=== PATIENT | female | born 1945 | race Caucasian/White ===

== ENCOUNTER 2020-02-29 21:18 | Emergency (ER) | payer MEDICARE, OTHER ==
[~2020-02-29] VITALS: Ht 162.6 cm; Wt 68.0 kg
[2020-02-29] MEDS ORDERED: predniSONE 20 MG TABLET ONE (22:25)
[2020-02-29] MEDS ORDERED: predniSONE 20 MG TABLET PO ONE (22:30)
[2020-02-29] MEDS ORDERED: ALBUTEROL FS 2.5 MG/3 ML VIAL.NEB ONE (22:30)
[2020-02-29] MEDS ORDERED: IPRATROPIUM NEB FS 0.5 MG/2.5 ML AMPUL.NEB ONE (22:30)
[2020-02-29] MEDS ORDERED: ALBUTEROL FS 2.5 MG/3 ML VIAL.NEB NEB ONE (22:30)
[2020-02-29] MEDS ORDERED: IPRATROPIUM NEB FS 0.5 MG/2.5 ML AMPUL.NEB NEB ONE (22:30)
--- NOTE | 2020-02-29 22:30 | NUR ---
JOSE R Tineo FROM [facility] FOR C/O SOB. 88 O2 SAT ON SCENE. PT AAOX3, DENIES CP, DIZZINESS, N/V, WEAKNESS AT THIS TIME. PLACED ON O2 2L SAT 97%, PT SEEN & EVAL'D BY DR. TORRES. MEDICATED ORDERED, PT LESVIA WELL. PLACED ON HAND I THERMAL CUTTER. SR. PT GETTING BREATHING TX, GIVEN BY RT. WILL CONT TO MONITOR.
[2020-02-29 22:42] LABS: BASOPHILS # (AUTO) 0.1 /CMM (0.0-0.2); BASOPHILS % (AUTO) 0.6 % (0.0-2.0); EOSINOPHILS % (AUTO) 4.8 % (0.0-6.0); HEMATOCRIT 40 % (33-45); HEMOGLOBIN 12.9 g/dL (11.5-14.8); LYMPHOCYTES # (AUTO) 3.1 /CMM (0.8-4.8); LYMPHOCYTES % (AUTO) 31.9 % (20.0-44.0); MEAN CORPUSCULAR HGB CONC 33 g/dl (31.0-36.0); MEAN CORPUSCULAR VOLUME 86 fL (82-100); MONOCYTES # (AUTO) 0.7 /CMM (0.1-1.30); MONOCYTES % (AUTO) 7.8 % (2.0-12.0); NEUTROPHILS # (AUTO) 5.3 /CMM (1.8-8.9); NEUTROPHILS % (AUTO) 54.9 % (43.0-81.0); PLATELET COUNT (AUTO) 220 /CMM (150-450); RED BLOOD CELL COUNT(AUTO) 4.57 MIL/uL (4.0-5.2); WHITE BLOOD COUNT (AUTO) 9.6 K/uL (4.3-11.0)
[2020-02-29 22:51] LABS: CALCIUM, SERUM 10.5 mg/dL (8.5-10.1); CARBON DIOXIDE 29 mmol/L (21-32); CHLORIDE 104 mmol/L (98-107); CREATININE 0.8 mg/dL (0.6-1.3); GLUCOSE 102 mg/dL (74-106); POTASSIUM 3.8 mmol/L (3.5-5.1); SODIUM SERUM 139 mmol/L (136-145); UREA NITROGEN, BLOOD 21 mg/dL (7-18)
--- NOTE | 2020-02-29 23:38 | NUR ---
BREATHING TX IN PROGRESS
--- NOTE | 2020-02-29 23:59 | NUR ---
[facility] CALLED FOR TRANSPORT. NO AVAILABLE ETA.
--- NOTE | 2020-03-01 00:11 | NUR ---
[facility] CALLED FOR S TRANSPORT. #[id number]. PENDING ETA
--- NOTE | 2020-03-01 00:51 | NUR ---
WILL SURVIVAL SPECIALIST IN 1 HOUR BY [facility].
--- NOTE | 2020-03-01 01:17 | NUR ---
REPORT GIVEN TO RICKY AT [facility]
--- NOTE | 2020-03-01 01:21 | NUR ---
REPORT GIVEN TO RICKY FOR CONTINUATION OF CARE.
--- NOTE | 2020-03-01 01:26 | NUR ---
[facility] AT BEDSIDE FOR TRANSPORT TO
--- NOTE | 2020-03-01 02:02 | NUR ---
Patient discharged to home in stable condition. Written and verbal after care instructions given. Patient verbalizes understanding of instruction.
[2020-03-01 02:03] VITALS: BP 106/85
== END 2020-03-01 02:04 ==
LOC: ER 21:21
DX: J44.1 Chronic obstructive pulmonary disease with (acute) exacerbation (principal); F17.210 Nicotine dependence, cigarettes, uncomplicated; I10 Essential (primary) hypertension; F31.9 Bipolar disorder, unspecified
CPT/HCPCS: 36415; 71045; 80048; 84484; 85025; 93005; 94644; 99285; 99406; J7512

== ENCOUNTER 2020-10-09 11:28 | Inpatient (IN) | payer MEDICARE, OTHER ==
[~2020-10-09] VITALS: Ht 160 cm; Wt 68.0 kg
[2020-10-09] MEDS ORDERED: SENN-18 PO (11:37)
[2020-10-09] MEDS ORDERED: CYAN-51 PO (11:37)
[2020-10-09] MEDS ORDERED: LITH300C4 PO (11:37)
[2020-10-09] MEDS ORDERED: MELA3TAB41 PO (11:37)
[2020-10-09] MEDS ORDERED: LATA2.5D15 EACHEYE (11:37)
[2020-10-09] MEDS ORDERED: DIPH-530 PO (11:37)
[2020-10-09] MEDS ORDERED: BISA10SU11 RC (11:37)
[2020-10-09] MEDS ORDERED: MAGN400O6 PO (11:37)
[2020-10-09] MEDS ORDERED: DOCU-141 PO (11:37)
[2020-10-09] MEDS ORDERED: ASPI-1420 PO (11:37)
[2020-10-09] MEDS ORDERED: PRAV40TA PO (11:37)
[2020-10-09] MEDS ORDERED: POLY17PO4 PO (11:37)
[2020-10-09] MEDS ORDERED: RISP1TAB7 PO (11:37)
[2020-10-09] MEDS ORDERED: MAGNESIUM HYDROXIDE 30 ML UDC PO PRN ×2 (12:30→15:00)
[2020-10-09] MEDS ORDERED: ACETAMINOPHEN 325 MG TABLET PO PRN (12:30)
[2020-10-09] MEDS ORDERED: LORAZEPAM 0.5 MG TABLET PO PRN (12:30)
[2020-10-09] MEDS ORDERED: MAG HYDROX/AL HYDROX/SIMETH 30 ML UDC PO PRN (12:30)
[2020-10-09 12:40] VITALS: BP 137/72
--- NOTE | 2020-10-09 13:00 | NUR ---
transition rn notes received patient direct admit from [facility] direct admit on dx of psychosis nos. , bipolar d/o, depression. patient a/o x3, , cooperative, no acute distress, no respiratory distress, v/s taken bp 127/72, t-98.1, r-19, p-64, o2-95 room air. Patient face to face assessment done, skin intact, refused si/hi/avh at this time. patient ambulatory self care, anxious, refractable. Family called and aware of. Seen patient psychiatrist Dr Sheffield. face picture taken, MRSA of nares swab as well taken. Patient sign paperwork, belonging checked. educated surrounding. will monitoring.
[2020-10-09] MEDS ORDERED: POLYETHYLENE GLYCOL 3350 17 GM POWD.PACK PO PRN (15:00)
[2020-10-09] MEDS ORDERED: SENNOSIDES 8.6 MG TABLET PO PRN (15:00)
[2020-10-09] MEDS ORDERED: diphenhydrAMINE HCL ELIX 25 MG/10 ML UDC PO PRN (15:00)
[2020-10-09] MEDS ORDERED: HOME MED MISCELLANEOUS XX SCH (15:00)
[2020-10-09] MEDS ORDERED: BISACODYL SUPP (10 MG) 10 MG/SUPP.RECT SUPP.RECT RC PRN (15:00)
[2020-10-09 16:00] VITALS: BP 146/85
[2020-10-09] MEDS ORDERED: BLOOD SUGAR DIAGNOSTIC 1 EACH STRIP IN ONE (16:30)
[2020-10-09] MEDS: ATORVASTATIN 10 MG TABLET PO SCH (17:22)
[2020-10-09] MEDS: risperiDONE 1 MG TABLET PO SCH (17:23)
[2020-10-09] MEDS: DOCUSATE SODIUM 100 MG CAPSULE PO SCH (17:23)
[2020-10-09] MEDS: CYANOCOBALAMIN 500 MCG TABLET PO SCH (17:23)
--- NOTE | 2020-10-09 17:49 | NUR ---
rn notes bs-78 mg/dl, also administered due medication, patient tolerated dinner 100 %. endorsed oncoming nurse follow plan of care.
[2020-10-09 18:03] LABS: THYROID STIMULATING HORMONE 0.497 uIU/mL (0.358-3.74)
[2020-10-09 20:48] VITALS: BP 154/90
--- NOTE | 2020-10-09 21:00 | NUR ---
NURSES NOTES: PATIENT REFUSED HER LITHIUM CARBONATE MEDICATION- WHEN ASKED THE REASON FOR REFUSAL PATIENT STATED THAT IT HAS A SIDE EFFECT ON THE KIDNEYS. NURSE EXPLAINED TO PATIENT THE RISKS AND BENEFITS OF THE SAID MEDICATION- PATIENT STILL REFUSED.
[2020-10-09] MEDS: LATANOPROST EYE DROP 0.005% 2.5 ML BOTTLE EACHEYE SCH (21:23)
[2020-10-09] MEDS ORDERED: LITHIUM CARBONATE (300 MG CAP) 300 MG CAPSULE PO SCH (22:00)
[2020-10-10 08:00] VITALS: BP 127/62
--- NOTE | 2020-10-10 08:13 | NUR ---
RN NOTES PT REFUSED LAB DRAW TODAY ORDERED. RISK AND BENEFITS DISCUSSED WITH PT RE:ORDER. PT CONTINUE TO REFUSED. X3. WILL MONITOR CARE
[2020-10-10] MEDS: CYANOCOBALAMIN 500 MCG TABLET PO SCH (08:31)
[2020-10-10] MEDS: ASPIRIN EC 81 MG TABLET.DR PO SCH (08:31)
[2020-10-10] MEDS: risperiDONE 1 MG TABLET PO SCH ×2 (08:33→16:18)
[2020-10-10] MEDS: DOCUSATE SODIUM 100 MG CAPSULE PO SCH ×2 (08:33→16:18)
--- NOTE | 2020-10-10 08:33 | NUR ---
RN NOTES PT REFUSED COLACE DUE TAT 9 AM - LBM TODAY WITH LOOSE BM X1. LITHIUM AND RISPERIDONE PT STATED "I DON;T TAKE THOSE MEDICATION, IT WILL DAMAGE MY KIDNEY". RISK AND BENEFITS DISCUSSED WITH PATIENT, CONTINUE TO REFUSED X3. WILL CONTINUE TO MONITOR CARE
[2020-10-10] MEDS ORDERED: LITHIUM CARBONATE (300 MG CAP) 300 MG CAPSULE PO SCH (09:00)
[2020-10-10] MEDS ORDERED: LITHIUM CARBONATE 150 MG CAPSULE PO SCH (09:00)
--- NOTE | 2020-10-10 12:07 | NUR ---
RN NOTES PT LAB DRAW ORDERED TODAY (CMP, LIPID, [id number]) CANCELLED DUE TO PT REFUSAL X [address] NURSE [address] DR. ISRAEL MADE AWARE. ALSO, DR. ISRAEL INFORMED ABOUT PATIENT REFUSAL OF MEDICATION : LITHIUM AND RISPERIDONE. PT NO S/SX OF PHYSICAL AGGRESSIVENESS, COMBATIVENESS, AH/VH/SI/HI. NO NEW ORDER OBTAINED
--- NOTE | 2020-10-10 12:58 | NUR ---
RN NOTES PT EKG DONE - SR 61. ORDERING PROVIDER, DR. ISRAEL NOTIFIED. READY TO REVIEW W/ DR. GRANADOS
[2020-10-10] MEDS: DIVALPROEX SODIUM 250 MG TABLET.DR PO SCH ×2 (13:59→21:11)
[2020-10-10 16:00] VITALS: BP_SYST 132; BP_SYST 134; BP_DIAS 73; BP_DIAS 77
[2020-10-10] MEDS: ATORVASTATIN 10 MG TABLET PO SCH (17:07)
[2020-10-10 19:51] VITALS: BP 128/84
[2020-10-10] MEDS: LATANOPROST EYE DROP 0.005% 2.5 ML BOTTLE EACHEYE SCH (21:12)
[2020-10-11] MEDS: ASPIRIN EC 81 MG TABLET.DR PO SCH (08:32)
[2020-10-11] MEDS: DOCUSATE SODIUM 100 MG CAPSULE PO SCH ×3 (08:32→17:00)
[2020-10-11] MEDS: DIVALPROEX SODIUM 250 MG TABLET.DR PO SCH ×2 (08:32→20:52)
[2020-10-11] MEDS: risperiDONE 1 MG TABLET PO SCH ×2 (08:33→17:07)
[2020-10-11] MEDS: CYANOCOBALAMIN 500 MCG TABLET PO SCH (08:33)
--- NOTE | 2020-10-11 10:00 | NUR ---
RN Open Notes: Patient aaox2, denies pain/discomforts. Meal consumed. Compliant with meds, except colace "i'm not constipated." Disheveled appearance. Withdrawn. No aggressive behaviors.
[2020-10-11] MEDS: ATORVASTATIN 10 MG TABLET PO SCH (17:08)
--- NOTE | 2020-10-11 18:42 | NUR ---
Rn Close Note: Patient in day room most of shift, calm/cooperative. All medication accepted. No unwanted behaviors.
[2020-10-11] MEDS: LATANOPROST EYE DROP 0.005% 2.5 ML BOTTLE EACHEYE SCH (21:23)
[2020-10-11] MEDS: ZOLPIDEM TARTRATE 5 MG TABLET PO PRN (22:14)
--- NOTE | 2020-10-11 22:14 | NUR ---
GPS-RN NOTES: INSOMNIA PATIENT C/O INABILITY TO SLEEP. ADMINISTERED AMBIEN 5MG PO ORDERED. WILL CONTINUE TO MONITOR.
[2020-10-12 08:00] VITALS: BP 118/69
[2020-10-12] MEDS: risperiDONE 1 MG TABLET PO SCH ×2 (08:18→17:02)
[2020-10-12] MEDS: DOCUSATE SODIUM 100 MG CAPSULE PO SCH ×2 (08:18→17:00)
[2020-10-12] MEDS: CYANOCOBALAMIN 500 MCG TABLET PO SCH (08:18)
[2020-10-12] MEDS: ASPIRIN EC 81 MG TABLET.DR PO SCH (08:18)
[2020-10-12] MEDS: DIVALPROEX SODIUM 250 MG TABLET.DR PO SCH ×2 (08:20→20:01)
--- NOTE | 2020-10-12 08:30 | NUR ---
Family Contact: SW called the pts daughter, Mariajose ([phone]), who provided the SW with an extensive history on the pt and then went on to explain that the pt was accepted to [facility] but when she walked through the doors she began screaming and shouting and now the family is unsure if she can return. SW stated that she can call the facility and work with them but the daughter stated that she will facilitate with them because "they do not like getting a lot of phone calls."
--- NOTE | 2020-10-12 15:42 | NUR ---
Initial Discharge Plan: Pt currently resides at [facility] located at [address] [place] [address]; ([phone]). Per pts daughter, Nimesh ([phone]), she will call the facility and work with them. SW will work with the pt and the MD regarding appropriate discharge planning. SW will form a safe and proper discharge.
[2020-10-12 16:00] VITALS: BP 134/71
[2020-10-12] MEDS: ATORVASTATIN 10 MG TABLET PO SCH (17:02)
[2020-10-12] MEDS: ZOLPIDEM TARTRATE 5 MG TABLET PO PRN (19:50)
[2020-10-12 20:00] VITALS: BP 116/71
[2020-10-12] MEDS: LATANOPROST EYE DROP 0.005% 2.5 ML BOTTLE EACHEYE SCH (21:57)
[2020-10-13 08:00] VITALS: BP 119/63
[2020-10-13] MEDS: risperiDONE 1 MG TABLET PO SCH ×2 (08:25→16:40)
[2020-10-13] MEDS: DIVALPROEX SODIUM 250 MG TABLET.DR PO SCH ×2 (08:25→20:50)
[2020-10-13] MEDS: ASPIRIN EC 81 MG TABLET.DR PO SCH (08:25)
[2020-10-13] MEDS: CYANOCOBALAMIN 500 MCG TABLET PO SCH (08:25)
[2020-10-13] MEDS: DOCUSATE SODIUM 100 MG CAPSULE PO SCH ×4 (08:25→16:40)
--- NOTE | 2020-10-13 10:51 | NUR ---
Family Contact: SW called the pts daughter, Mariajose ([phone]), and left a voicemail stating that the SW would like to discuss the pts discharge plan.
--- NOTE | 2020-10-13 11:17 | NUR ---
Family Contact: SW called the pts daughter, Mariajose ([phone]), and left a voicemail stating that the SW would like to discuss the pts discharge plan.
--- NOTE | 2020-10-13 14:55 | NUR ---
Family Contact: SW called the pts daughter, Mariajose ([phone]), and informed her that the pt is going to be discharged on Sunday and the pts daughter stated that her and her sister are attempting to contact the computer systems administrator of the pts facility to make a decision on whether or not the pt can return. SW informed the pts daughter to let the SW know if she needs assistance.
[2020-10-13 16:00] VITALS: BP 118/72
--- NOTE | 2020-10-13 16:23 | NUR ---
Family Contact: Pts daughter, Mariajose ([phone]), called the SW and stated that after the SW messaged Dr. Valadez's automotive product engineer, the district court administrator contacted the pts daughter and stated that they will take the pt back. They stated that they would prefer a Sunday discharge because they do not admit on Fridays mostly. SW stated that she will inform the MD.
[2020-10-13] MEDS: ATORVASTATIN 10 MG TABLET PO SCH (17:01)
[2020-10-13] MEDS: ZOLPIDEM TARTRATE 5 MG TABLET PO PRN (20:50)
[2020-10-13 21:03] VITALS: BP 125/84
[2020-10-13] MEDS: LATANOPROST EYE DROP 0.005% 2.5 ML BOTTLE EACHEYE SCH (21:19)
[2020-10-14 08:00] VITALS: BP 127/83
[2020-10-14] MEDS: ASPIRIN EC 81 MG TABLET.DR PO SCH ×2 (08:44→08:45)
[2020-10-14] MEDS: DOCUSATE SODIUM 100 MG CAPSULE PO SCH ×2 (08:44→17:00)
[2020-10-14] MEDS: risperiDONE 1 MG TABLET PO SCH ×2 (08:46→17:36)
[2020-10-14] MEDS: DIVALPROEX SODIUM 250 MG TABLET.DR PO SCH ×2 (08:46→20:12)
[2020-10-14] MEDS: CYANOCOBALAMIN 500 MCG TABLET PO SCH (08:46)
--- NOTE | 2020-10-14 14:08 | NUR ---
Facility Contact: AGUEDA called [facility] ([phone]) and spoke to Kaye who is the field support technician. She stated that she would want the pts prescriptions to get faxed to her before 11am on Sunday when the pt is being discharged.
--- NOTE | 2020-10-14 14:18 | NUR ---
Family Contact: AGUEDA called the pts daughter, Mariajose ([phone]), and informed her that the pt is going to be discharged to [facility] on Sunday. She stated that she would come picker and sorter load and unload the pt around 11am.
--- NOTE | 2020-10-14 15:39 | NUR ---
RN-CO: PATIENT REFUSED LAB WORKS 3X.
[2020-10-14 16:00] VITALS: BP 137/91
[2020-10-14] MEDS: ATORVASTATIN 10 MG TABLET PO SCH (17:36)
[2020-10-14 20:39] VITALS: BP 132/78
[2020-10-14] MEDS: LATANOPROST EYE DROP 0.005% 2.5 ML BOTTLE EACHEYE SCH (21:23)
[2020-10-14] MEDS: ZOLPIDEM TARTRATE 5 MG TABLET PO PRN (22:11)
--- NOTE | 2020-10-14 22:11 | NUR ---
GPS-RN NOTES: INSOMNIA PATIENT C/O UNABLE TO SLEEP. ADMINISTERED AMBIEN 5MG PO ORDERED. WILL CONTINUE TO MONITOR.
--- NOTE | 2020-10-15 07:00 | NUR ---
RN NOTE : PATIENT REFUSED AM LAB WORKS, ENCOURAGED 3 X. RISKS BENEFITS EXPLINED, PT. STILL REFUSED.
[2020-10-15 08:00] VITALS: BP 120/77
[2020-10-15] MEDS: DIVALPROEX SODIUM 250 MG TABLET.DR PO SCH ×2 (08:20→20:50)
[2020-10-15] MEDS: CYANOCOBALAMIN 500 MCG TABLET PO SCH (08:20)
[2020-10-15] MEDS: ASPIRIN EC 81 MG TABLET.DR PO SCH (08:20)
[2020-10-15] MEDS: risperiDONE 1 MG TABLET PO SCH ×2 (08:20→16:42)
[2020-10-15] MEDS: DOCUSATE SODIUM 100 MG CAPSULE PO SCH ×3 (08:21→16:46)
--- NOTE | 2020-10-15 09:00 | NUR ---
RN NOTE- ALERT ORIENTED PERSON PLACE, WITHDRAWN ISOLATIVE DENIES ALL MED COMPLIANT
--- NOTE | 2020-10-15 12:34 | NUR ---
Probable Cause Hearing: Pts [id number] hold was upheld for grave disability.
[2020-10-15 16:00] VITALS: BP 134/64
--- NOTE | 2020-10-15 16:16 | NUR ---
Family Contact: SW called the pts daughter, Mariajose ([phone]), and left a voicemail message to confirm the pts pickup time.
[2020-10-15] MEDS: ATORVASTATIN 10 MG TABLET PO SCH (18:18)
[2020-10-15 20:30] VITALS: BP 141/77
[2020-10-15] MEDS: LATANOPROST EYE DROP 0.005% 2.5 ML BOTTLE EACHEYE SCH (21:05)
[2020-10-15] MEDS: ZOLPIDEM TARTRATE 5 MG TABLET PO PRN (22:07)
--- NOTE | 2020-10-15 22:21 | NUR ---
GPS-RN NOTES: INSOMNIA PATIENT C/O UNABLE TO SLEEP. ADMINISTERED AMBIEN 5MG PO ORDERED. WILL CONTINUE TO MONITOR.
--- NOTE | 2020-10-16 07:00 | NUR ---
RN NOTES: PATIENT RESTING IN ROOM. NO S/S OF DISTRESS. NO CHANGE OF CONDITION NOTED, SAFETY PRECAUTION MAINTAINED, ALL PATIENT CARE NEEDS MET AT THIS TIME. WILL CONTINUE TO MONITOR PATIENT FOR MOOD, BEHAVIOR AND SAFETY AND ENDORSE TO AM SHIFT FOR CONTINUITY CARE.
[2020-10-16 08:00] VITALS: BP 131/74
[2020-10-16] MEDS: CYANOCOBALAMIN 500 MCG TABLET PO SCH (08:48)
[2020-10-16] MEDS: DIVALPROEX SODIUM 250 MG TABLET.DR PO SCH ×2 (08:48→20:54)
[2020-10-16] MEDS: risperiDONE 1 MG TABLET PO SCH ×2 (08:49→17:09)
[2020-10-16] MEDS: DOCUSATE SODIUM 100 MG CAPSULE PO SCH ×2 (08:57→16:32)
[2020-10-16] MEDS: ASPIRIN EC 81 MG TABLET.DR PO SCH (09:04)
[2020-10-16 16:00] VITALS: BP 122/75
[2020-10-16] MEDS: ATORVASTATIN 10 MG TABLET PO SCH (17:09)
[2020-10-16 20:08] VITALS: BP 126/83
[2020-10-16 20:15] VITALS: BP 126/83
[2020-10-16] MEDS: LATANOPROST EYE DROP 0.005% 2.5 ML BOTTLE EACHEYE SCH (21:08)
--- NOTE | 2020-10-16 21:10 | NUR ---
RN NOTE: NEW ORDER OF AMBIEN RECEIVED PATIENT STATED," I CAN'T SLEEP WITHOUT SLEEPING MEDICINE. I TAKE MELATONIN 3 MG EVERY NIGHT AT HOME, IF DOCTOR CAN'T GIVE ME MELATONIN RIGHT NOW, GIVE ME OTHER SLEEPING MEDICINE, I NEED IT." CHARGE NURSE NOTIFIED DR. GAMEZ & RECEIVED NEW ORDER OF AMBIEN 5 MG PO HS PRN. ORDER NOTED & CARRIED OUT. WILL CONTINUE TO MONITOR.
[2020-10-16] MEDS: ZOLPIDEM TARTRATE 5 MG TABLET PO PRN (21:53)
--- NOTE | 2020-10-16 21:55 | NUR ---
RN NOTE: INSOMNIA PATIENT VERBALIZED THAT SHE IS UNABLE TO SLEEP & REQUESTED TO TAKE SLEEPING MEDICINE, STATED," I CAN'T SLEEP WITHOUT SLEEPING MEDICINE." PRN AMBIEN 5 MG 1 TAB PO ADMINISTERED. WILL CONTINUE TO MONITOR.
[2020-10-17 08:00] VITALS: BP 138/69
[2020-10-17] MEDS: risperiDONE 1 MG TABLET PO SCH ×2 (08:40→17:14)
[2020-10-17] MEDS: ASPIRIN EC 81 MG TABLET.DR PO SCH (08:41)
[2020-10-17] MEDS: DIVALPROEX SODIUM 250 MG TABLET.DR PO SCH ×2 (08:41→20:49)
[2020-10-17] MEDS: CYANOCOBALAMIN 500 MCG TABLET PO SCH (08:42)
[2020-10-17] MEDS: DOCUSATE SODIUM 100 MG CAPSULE PO SCH ×2 (08:44→17:00)
[2020-10-17 16:00] VITALS: BP 137/71
--- NOTE | 2020-10-17 20:01 | NUR ---
RN NOTE PATIENT RECEIVED IN BED, ALERT AND ORIENTED, DENIES ANY PAIN OR DISCOMFORT. COOPERATIVE WITH CARE, NO VOICED NEEDS AT THIS TIME. SAFETY PRECAUTIONS MAINTAINED. WILL CONTINUE MONITORING CLOSELY.
[2020-10-17 20:46] VITALS: BP 124/86
[2020-10-17] MEDS: ZOLPIDEM TARTRATE 5 MG TABLET PO PRN (20:50)
[2020-10-17] MEDS: ATORVASTATIN 10 MG TABLET PO SCH (20:50)
--- NOTE | 2020-10-17 21:00 | NUR ---
PATIENT REQUESTED SLEEPING PILL TONIGHT, STATES IT'S HARD FOR HER TO SLEEP. RANJANAIEN ADMNISTERED PER ORDERS, WILL CONTINUE MONITORING CLOSELY.
[2020-10-17] MEDS: LATANOPROST EYE DROP 0.005% 2.5 ML BOTTLE EACHEYE SCH (21:03)
[2020-10-18 08:00] VITALS: BP 122/67
[2020-10-18] MEDS: ASPIRIN EC 81 MG TABLET.DR PO SCH (08:31)
[2020-10-18] MEDS: risperiDONE 1 MG TABLET PO SCH (08:31)
[2020-10-18] MEDS: CYANOCOBALAMIN 500 MCG TABLET PO SCH (08:31)
[2020-10-18] MEDS: DIVALPROEX SODIUM 250 MG TABLET.DR PO SCH (08:32)
[2020-10-18] MEDS: DOCUSATE SODIUM 100 MG CAPSULE PO SCH (08:32)
--- NOTE | 2020-10-18 12:22 | NUR ---
GINNER HELPER NOTE: 75 Y/O FEMALE DISCHARGED TO [facility] IN STABLE CONDITION. AAOX4, WITH CALM AFFECT AND EUTHYMIC MOOD. COOPERATIVE AND COMPLIANT. STATES "I WILL TAKE MY MEDICINE." INSTRUCTED TO RETURN TO HOSPITAL IF SHE BECOMES DELUSIONAL, HALLUCINATES OR HAVE SUICIDAL/HOMICIDAL IDEATIONS. MEDICATIONS REVIEWED AND PRESCRIPTIONS GIVEN. DISCUSSED AFTERCARE AT [facility]. PARANOIA IMPROVED, DENIES AUDITORY/VISUAL HALLUCINATIONS AND SI/HI. TREATMENT PLAN GOALS MET. COPY OF AFTERCARE PLAN AND BELONGINGS GIVEN. ESCORTED BY NURSE TO [facility], WHO WILL TRANSPORT HER TO FACILITY.
--- NOTE | 2020-10-18 13:09 | NUR ---
Discharge Note: Pt will be discharged to [facility] located at [address] [place] [address]; . Pt will be discharged at 11AM and will be picked up by her daughter, Mariajose ([phone]). Upon discharge, the pt appears to be in a euthymic mood and presents with a calm affect. Pt appears to be alert and oriented x4 (time, self, place and situation). Pt denies both suicidal and homicidal ideation as well as auditory and visual hallucinations. Pt appears ambulatory with a steady gait. Pt appears to be well groomed and appropriately dressed. Pt will continue to be under the care of psychiatrist, Dr. London Valadez, located at [address] [facility] [address] [address]; and cotton stripper, Dr. Houser, located at [address] [place] [address]; . The multidisciplinary exit care form was done, printed, signed, and given to the patient.
== END 2020-10-18 12:15 | DRG 885 ==
LOC: GPS 11:28
PROVIDERS: ADMIT Psychiatry & Neurology Psychiatry; ATTEND Nurse Practitioner Acute Care
DX: F31.2 Bipolar disorder, current episode manic severe with psychotic features (principal); H40.9 Unspecified glaucoma; I10 Essential (primary) hypertension; F41.9 Anxiety disorder, unspecified; F17.210 Nicotine dependence, cigarettes, uncomplicated; E66.9 Obesity, unspecified; E78.5 Hyperlipidemia, unspecified; F29 Unspecified psychosis not due to a substance or known physiological condition; Z73.6 Limitation of activities due to disability; Z71.6 Tobacco abuse counseling; J44.9 Chronic obstructive pulmonary disease, unspecified; Z68.26 Body mass index [BMI] 26.0-26.9, adult; Z20.822 Contact with and (suspected) exposure to COVID-19
CPT/HCPCS: 36415; 80164-TC; 82962-TC; 84439-TC; 84443-TC; 84481; 87081-TC; 87086-TC

== ENCOUNTER 2021-01-18 17:00 | Inpatient (IN) | payer MEDICARE, OTHER ==
[~2021-01-18] VITALS: Ht 162.6 cm; Wt 81.2 kg
[~2021-01-18 17:00] MED LIST: ASPI-1420 PO; BISA10SU11 RC; CYAN-51 PO; DIPH-530 PO; DOCU-141 PO; LATA2.5D15 EACHEYE; MAGN400O6 PO; MELA3TAB41 PO; POLY17PO4 PO; PRAV40TA PO; SENN-18 PO
--- NOTE | 2021-01-18 17:00 | NUR ---
PT BIB DAUGHTER C/O DEPRESSION AND "IM HEARING VOICES" DENIES SI OR HI. PT IS AAOX4, NOT IN RESPIRATORY DISTRESS, V/S STABLE, KEPT RESTED AND COMFORTABLE. WILL CONTINUE TO MONITOR.
--- NOTE | 2021-01-18 17:19 | NUR ---
SEEN AND EXAMINED BY AYESHA UNDERWOOD
[2021-01-18 18:03] LABS: BILIRUBIN,URINE Negative (NEGATIVE); COLOR,URINE YELLOW (YELLOW); LEUKOCYTE ESTERASE ,URINE Negative (NEGATIVE); NITRITE, URINE Negative (NEGATIVE); PROTEIN,URINE Negative (NEGATIVE); UGLUCOSE Negative (NEGATIVE); UROBILINOGEN,URINE 0.2 EU/dL (0.2)
[2021-01-18 18:20] LABS: BASOPHILS % (AUTO) 0.5 % (0.0-2.0); EOSINOPHILS % (AUTO) 2.3 % (0.0-6.0); HEMATOCRIT 43 % (33-45); HEMOGLOBIN 14.1 g/dL (11.5-14.8); LYMPHOCYTES # (AUTO) 2.2 /CMM (0.8-4.8); LYMPHOCYTES % (AUTO) 26.2 % (20.0-44.0); MEAN CORPUSCULAR HGB CONC 33 g/dl (31.0-36.0); MEAN CORPUSCULAR VOLUME 88 fL (82-100); MONOCYTES # (AUTO) 0.4 /CMM (0.1-1.30); MONOCYTES % (AUTO) 4.3 % (2.0-12.0); NEUTROPHILS # (AUTO) 5.7 /CMM (1.8-8.9); NEUTROPHILS % (AUTO) 66.7 % (43.0-81.0); PLATELET COUNT (AUTO) 186 /CMM (150-450); RED BLOOD CELL COUNT(AUTO) 4.84 MIL/uL (4.0-5.2); WHITE BLOOD COUNT (AUTO) 8.6 K/uL (4.3-11.0)
[2021-01-18] MEDS ORDERED: SERT100T PO (18:20)
[2021-01-18] MEDS ORDERED: POLY15DR40 EACHEYE (18:20)
[2021-01-18] MEDS ORDERED: ATOR10TA PO (18:20)
[2021-01-18 18:34] LABS: ALANINE AMINOTRANSFERASE 28 U/L (12-78); ALBUMIN 3.6 g/dL (3.4-5.0); ALKALINE PHOSPHATASE 105 U/L (46-116); ASPARTATE AMINOTRANSFERASE 14 U/L (15-37); BILIRUBIN,DIRECT 0.1 mg/dL (0.0-0.2); BILIRUBIN,TOTAL 0.3 mg/dL (0.2-1.0); CALCIUM, SERUM 10.3 mg/dL (8.5-10.1); CARBON DIOXIDE 31 mmol/L (21-32); CHLORIDE 106 mmol/L (98-107); CREATININE 0.9 mg/dL (0.6-1.3); GLUCOSE 123 mg/dL (74-106); SODIUM SERUM 142 mmol/L (136-145); TOTAL PROTEIN, SERUM 6.8 g/dL (6.4-8.2); UREA NITROGEN, BLOOD 25 mg/dL (7-18)
[2021-01-18 18:38] LABS: ACETAMINOPHEN < 2 ug/ml (10-30); ALCOHOL, BLOOD < 3 mg/dL (0-0)
[2021-01-18] MEDS ORDERED: DIVA-76 PO (18:51)
[2021-01-18] MEDS ORDERED: RISP0.2515 PO (18:51)
--- NOTE | 2021-01-18 19:11 | NUR ---
COVID SWAB COLLECTED AND SENT TO LAB
--- NOTE | 2021-01-18 19:30 | NUR ---
REC'D PT IN BED AWAKE AND ALERT. BREATHING EVENLY. NO SOB . NAD, DENIED ANY PAIN OR DISCOMFORT. PT REMAINED CALM AND COOPERATIVE,. VSS. WILL CONT TO MONITOR
--- NOTE | 2021-01-19 00:04 | NUR ---
Patient is resting comfortably in bed with eyes closed. Easily aroused. VSS. WILL CONT TO MONITOR
--- NOTE | 2021-01-19 03:08 | NUR ---
PT ASLEEP, NO ACUTE DISTRESS NOTED, RESP EVEN AND UNLABORED. CALL LIGHT WIHTIN REACH. WILL CONTINUE TO MONITOR PT. 1:1 SITTER AT BEDSIDE FOR PT SAFETY.
--- NOTE | 2021-01-19 03:43 | NUR ---
REPORT GIVEN TO SANDRA RILEY.
[2021-01-19 04:09] VITALS: BP 134/72
--- NOTE | 2021-01-19 04:09 | NUR ---
GPS-BREAST PULLER NOTES: ADMITTED A 75-Y/O FEMALE, FROM ON LICENSE OF [facility], ORIGINALLY PATIENT CAME FROM [facility]. PATIENT ADMITTED ON 5150 FOR DTS/DTO/GD. PER HOLD, PATIENT IS A/OX3, PATIENT STATED "I FEEL DEPRESSED AND HEARING VOICES TELLING ME THAT THEY LOVE ME AND I CAN'T SLEEP AT NIGHT". ACCORDING TO HER DAUGHTER PATIENT HAS BEEN AGGRESSIVE FOR THE PAST FOUR WEEKS, HITTING STAFF, VERBALLY ABUSIVE TO STAFF, BELLIGERENT, REFUSING MEDICATIONS, VOICES TELLING HER TO HARM HERSELF. UPON FACE TO FACE ASSESSMENT, PATIENT IS A&OX3, BLUNTED AFFECT, ANXIOUS, FEELING DEPRESSED AND GUARDED. PATIENT IS UNDER THE PSYCH CARE OF DR. ISRAEL AND THE MEDICAL CARE OF DR. CONLEY. PT HANDBOOK GIVEN WITH PATIENT'S RIGHTS AND GUIDE TO PRESCRIPTIONS. PATIENT BELONGINGS WERE INVENTORIED AND CHECKED FOR CONTRABAND. DENIES PAIN OR DISCOMFORT AT THIS TIME. PATIENT REFUSED SKIN ASSESSMENT. PT REFUSED PNEUMONIA VACCINE WHEN OFFERED. SMOKING CESSATION ENCOURAGED, NICOTINE PATCH WAS ALSO OFFERED BUT PATIENT REFUSED. DENIES SI/HI AT THIS TIME. PATIENT STATES SHE HEARS VOICES, "VOICES ARE TELLING HER THEY LOVE ME AND THEY WISH ME WELL". SAFETY PRECAUTIONS IN PLACE. WILL CONTINUE TO MONITOR Q15MIN ROUNDS FOR SAFETY AND BEHAVIOR. Addendum: 01/19/21 at 0705 by CRISTHIAN STAUFFER RN DR. CONLEY NOTIFIED REGARDING PATIENT'S ADMISSION UNDER HIS MEDICAL CARE.
[2021-01-19] MEDS ORDERED: ACETAMINOPHEN 325 MG TABLET PO PRN (04:30)
[2021-01-19] MEDS ORDERED: ZOLPIDEM TARTRATE 5 MG TABLET PO PRN (04:30)
[2021-01-19] MEDS ORDERED: MAGNESIUM HYDROXIDE 30 ML UDC PO PRN (04:30)
[2021-01-19] MEDS ORDERED: MAG HYDROX/AL HYDROX/SIMETH 30 ML UDC PO PRN (04:30)
[2021-01-19] MEDS ORDERED: BLOOD SUGAR DIAGNOSTIC 1 EACH STRIP IN ONE (04:30)
[2021-01-19] MEDS ORDERED: CYAN-51 PO (06:02)
[2021-01-19 08:00] VITALS: BP 138/80
[2021-01-19] MEDS: ASPIRIN EC 81 MG TABLET.DR PO SCH (08:19)
--- NOTE | 2021-01-19 08:22 | NUR ---
Patient requesting zoloft. Notified as of this time it is not ordered. Patient may need reinforcement of teaching. Michael Burton RN
--- NOTE | 2021-01-19 10:09 | NUR ---
Patient request for medication. Manager Legal offered ativan for anxiety. Patient refused medication at this time. Michael Burton RN
[2021-01-19] MEDS ORDERED: ALBUTEROL FS 2.5 MG/0.5 ML VIAL.NEB NEB PRN (10:30)
[2021-01-19 16:00] VITALS: BP 110/61
[2021-01-19] MEDS: risperiDONE 1 MG TABLET PO SCH (17:35)
[2021-01-19] MEDS: ATORVASTATIN 10 MG TABLET PO SCH (17:36)
[2021-01-19 20:58] VITALS: BP 119/64
[2021-01-19] MEDS: DIVALPROEX SODIUM 250 MG TABLET.DR PO SCH (21:24)
[2021-01-19] MEDS: LATANOPROST EYE DROP 0.005% 2.5 ML BOTTLE EACHEYE SCH (21:24)
[2021-01-19] MEDS: LORAZEPAM 1 MG TABLET PO PRN (21:30)
[2021-01-20 06:56] LABS: CHOLESTEROL 158 mg/dL (<200); HDL CHOLESTEROL 58 mg/dL (40-60); LDL 82 mg/dL (0-99); TRIGLYCERIDES 85 mg/dL (30-150)
[2021-01-20 07:08] LABS: ALBUMIN 3.4 g/dL (3.4-5.0); BILIRUBIN,TOTAL 0.6 mg/dL (0.2-1.0); CALCIUM, SERUM 9.9 mg/dL (8.5-10.1); CREATININE 0.7 mg/dL (0.6-1.3); POTASSIUM 4.2 mmol/L (3.5-5.1); TOTAL PROTEIN, SERUM 6.6 g/dL (6.4-8.2)
[2021-01-20 08:00] VITALS: BP 115/68
[2021-01-20] MEDS: DIVALPROEX SODIUM 250 MG TABLET.DR PO SCH ×2 (08:45→21:36)
[2021-01-20] MEDS: risperiDONE 1 MG TABLET PO SCH ×2 (08:46→16:36)
[2021-01-20] MEDS: ASPIRIN EC 81 MG TABLET.DR PO SCH (08:46)
[2021-01-20] MEDS: SERTRALINE HCL 25 MG TABLET PO SCH (08:46)
[2021-01-20] MEDS: LORAZEPAM 1 MG TABLET PO PRN (12:05)
[2021-01-20 16:00] VITALS: BP 146/80
--- NOTE | 2021-01-20 16:08 | NUR ---
Initial Discharge Plan: Pt currently resides at [facility] located at [address] [place] [address]; ([phone]). Per pt, she would like to return to the facility. SW will work with the pt and the MD regarding appropriate discharge planning. SW will form a safe and proper discharge.
--- NOTE | 2021-01-20 16:09 | NUR ---
Family Contact: SW called the pts daughter, Lo ([phone]), and was unable to make contact. SW left a voicemail stating that she wanted to discuss the pts treatment.
[2021-01-20] MEDS: ATORVASTATIN 10 MG TABLET PO SCH (17:10)
[2021-01-20 20:39] VITALS: BP 124/68
[2021-01-20] MEDS: LATANOPROST EYE DROP 0.005% 2.5 ML BOTTLE EACHEYE SCH (21:38)
[2021-01-21 08:00] VITALS: BP 120/72
[2021-01-21] MEDS: ASPIRIN EC 81 MG TABLET.DR PO SCH (09:02)
[2021-01-21] MEDS: SERTRALINE HCL 25 MG TABLET PO SCH (09:02)
[2021-01-21] MEDS: risperiDONE 1 MG TABLET PO SCH ×2 (09:03→17:44)
[2021-01-21] MEDS: DIVALPROEX SODIUM 250 MG TABLET.DR PO SCH ×2 (09:06→20:42)
--- NOTE | 2021-01-21 14:00 | NUR ---
RN NOTES PATIENT SEEN BY DR ISRAEL , MADE AWARE THAT PATIENT WAS SLEEPING MOST OF THE TIME TODAY, EASILY AWAKEN , PER JHONATAN TO CONTINUE TO MONITOR PATIENT BUT HE WILL NOT CHANGE MEDICATION TODAY .
[2021-01-21 16:00] VITALS: BP 127/68
[2021-01-21] MEDS: ATORVASTATIN 10 MG TABLET PO SCH (17:43)
--- NOTE | 2021-01-21 18:52 | NUR ---
RN NOTES PATIENT LYING IN BED , SLEEPING EASILY AWAKEN, ALERT ORIENTED X 3, NO ACUTE DISTRESS NOTED. BREATHING UNLABORED. SAFETY MEASURES IN PLACE. WILL CONTINUE TO MONITOR AND ENDORSE TO NIGHT NURSE FOR CONTINUITY OF CARE.
[2021-01-21 20:28] VITALS: BP 127/67
[2021-01-21] MEDS: LATANOPROST EYE DROP 0.005% 2.5 ML BOTTLE EACHEYE SCH (22:23)
[2021-01-22 08:00] VITALS: BP 116/58
[2021-01-22] MEDS: DIVALPROEX SODIUM 250 MG TABLET.DR PO SCH ×2 (09:21→21:22)
[2021-01-22] MEDS: risperiDONE 1 MG TABLET PO SCH ×2 (09:21→17:38)
[2021-01-22] MEDS: ASPIRIN EC 81 MG TABLET.DR PO SCH (09:21)
[2021-01-22] MEDS: SERTRALINE HCL 25 MG TABLET PO SCH (09:22)
--- NOTE | 2021-01-22 11:16 | NUR ---
SLEEPY ON AM ROUNDS ,BUT VITAL STABLE,MED COMPLIANT.
[2021-01-22] MEDS: LORAZEPAM 1 MG TABLET PO PRN ×2 (12:25→21:29)
--- NOTE | 2021-01-22 12:31 | NUR ---
GIVEN ATIVAN FOR AGITATION.
[2021-01-22 16:00] VITALS: BP 121/65
[2021-01-22] MEDS: ATORVASTATIN 10 MG TABLET PO SCH (17:38)
[2021-01-22 20:00] VITALS: BP 122/72
[2021-01-22 20:01] VITALS: BP 122/72
[2021-01-22] MEDS: LATANOPROST EYE DROP 0.005% 2.5 ML BOTTLE EACHEYE SCH (21:22)
--- NOTE | 2021-01-23 05:51 | NUR ---
ENDING NOTES: FRIENDLY SMILING. KEPT TO HER ROOM THIS 12 HOURS. REQUISTED ATIVAN "TO PUT ME TO SLEEP". ATIVAN GIVEN AT 21:30 AND EFFECTIVE FOR 6 HOURS,. WHEN OOB STEADY ON HER LEGS, HS SNACK PRIOR GOING TO SLEEP
[2021-01-23 08:00] VITALS: BP 138/61
[2021-01-23] MEDS: risperiDONE 1 MG TABLET PO SCH ×2 (09:06→18:04)
[2021-01-23] MEDS: ASPIRIN EC 81 MG TABLET.DR PO SCH (09:06)
[2021-01-23] MEDS: SERTRALINE HCL 25 MG TABLET PO SCH (09:06)
[2021-01-23] MEDS: DIVALPROEX SODIUM 250 MG TABLET.DR PO SCH ×2 (09:06→21:42)
[2021-01-23] MEDS: LORAZEPAM 1 MG TABLET PO PRN ×2 (09:57→18:04)
--- NOTE | 2021-01-23 09:57 | NUR ---
RN NOTES PATIENT REQUEST FOR ATIVAN 1MG 1 TAB P.O. AND WAS GIVEN. WILL CONTINUE TO MONITOR.
[2021-01-23 16:00] VITALS: BP 126/64
[2021-01-23] MEDS: ATORVASTATIN 10 MG TABLET PO SCH (18:04)
[2021-01-23 20:00] VITALS: BP 131/71
[2021-01-23] MEDS: LATANOPROST EYE DROP 0.005% 2.5 ML BOTTLE EACHEYE SCH (21:43)
[2021-01-24 06:58] LABS: BASOPHILS % (AUTO) 0.6 % (0.0-2.0); EOSINOPHILS % (AUTO) 4.3 % (0.0-6.0); HEMATOCRIT 40 % (33-45); HEMOGLOBIN 13.2 g/dL (11.5-14.8); LYMPHOCYTES # (AUTO) 2.8 /CMM (0.8-4.8); LYMPHOCYTES % (AUTO) 38.1 % (20.0-44.0); MEAN CORPUSCULAR HGB CONC 33 g/dl (31.0-36.0); MEAN CORPUSCULAR VOLUME 88 fL (82-100); MONOCYTES # (AUTO) 0.6 /CMM (0.1-1.30); MONOCYTES % (AUTO) 8.2 % (2.0-12.0); NEUTROPHILS # (AUTO) 3.6 /CMM (1.8-8.9); NEUTROPHILS % (AUTO) 48.8 % (43.0-81.0); PLATELET COUNT (AUTO) 171 /CMM (150-450); RED BLOOD CELL COUNT(AUTO) 4.53 MIL/uL (4.0-5.2); WHITE BLOOD COUNT (AUTO) 7.4 K/uL (4.3-11.0)
[2021-01-24 07:25] LABS: CREATININE 0.6 mg/dL (0.6-1.3); POTASSIUM 4.3 mmol/L (3.5-5.1)
[2021-01-24 08:00] VITALS: BP 128/78
[2021-01-24 08:00] LABS: THYROID STIMULATING HORMONE 0.649 uIU/mL (0.358-3.74)
[2021-01-24] MEDS: SERTRALINE HCL 25 MG TABLET PO SCH (08:16)
[2021-01-24] MEDS: risperiDONE 1 MG TABLET PO SCH ×2 (08:16→17:12)
[2021-01-24] MEDS: DIVALPROEX SODIUM 250 MG TABLET.DR PO SCH ×2 (08:16→21:00)
[2021-01-24] MEDS: ASPIRIN EC 81 MG TABLET.DR PO SCH (08:16)
--- NOTE | 2021-01-24 09:30 | NUR ---
Family Contact: SW called the pts daughter, Aylin ([phone]), and informed her that the SW spoke with the MD and the pt will be ready to be discharged to [facility] tomorrow. Pts daughter stated that the SW will need to send over all of the prescriptions as soon as possible so the Med Tech can get the new prescriptions. SW stated that she will call over and speak to them.
--- NOTE | 2021-01-24 09:37 | NUR ---
Facility Contact: AGUEDA called [facility] ([phone]) and spoke to Kaye the [employer] who stated that the pt can return to the facility but stated that she prefers a Sunday discharge as she will not be at work the next day. AGUEDA stated that she will speak with the pts MD and send over the prescriptions as soon as she can.
[2021-01-24] MEDS: LORAZEPAM 1 MG TABLET PO PRN (13:37)
--- NOTE | 2021-01-24 13:37 | NUR ---
RN NOTE: ANXIETY PT EXHIBITING INCREASED ANXIETY. REQUESTING ATIVAN. ATIVAN 1MG PO PRN ADMINISTERED.
[2021-01-24 16:00] VITALS: BP 127/83
--- NOTE | 2021-01-24 16:06 | NUR ---
Family Contact: Pts daughter, Lo ([phone]), called the SW and stated that she wanted to know what medications the pt is on and informed the SW that the pts other daughter will be picking the pt up the following day.
[2021-01-24] MEDS: ATORVASTATIN 10 MG TABLET PO SCH (17:12)
[2021-01-24 20:00] VITALS: BP 105/64
[2021-01-24] MEDS: LATANOPROST EYE DROP 0.005% 2.5 ML BOTTLE EACHEYE SCH (22:00)
[2021-01-25 08:00] VITALS: BP 124/60
[2021-01-25] MEDS: DIVALPROEX SODIUM 250 MG TABLET.DR PO SCH ×2 (08:14→21:00)
[2021-01-25] MEDS: SERTRALINE HCL 25 MG TABLET PO SCH (08:14)
[2021-01-25] MEDS: ASPIRIN EC 81 MG TABLET.DR PO SCH (08:14)
[2021-01-25] MEDS: risperiDONE 1 MG TABLET PO SCH ×2 (08:14→17:02)
[2021-01-25] MEDS: LORAZEPAM 1 MG TABLET PO PRN (08:59)
--- NOTE | 2021-01-25 08:59 | NUR ---
RN NOTE: ANXIETY PT REQUESTING ATIVAN FOR ANXIETY. MEDICATED WITH ATIVAN 1MG PO PRN. WILL CONT TO MONITOR PT FOR SAFETY AND BEHAVIOR WELL EFFECTIVENESS OF PRN MEDICATION.
--- NOTE | 2021-01-25 11:59 | NUR ---
Facility Contact: AGUEDA faxed a medication list to [facility] ([phone]) with attn to Kaye to the fax number: [phone].
--- NOTE | 2021-01-25 12:20 | NUR ---
Family Contact: SW called the pts daughter, Aylin ([phone]), and left a voicemail stating that the SW would like to discuss the pts pepper picker time.
--- NOTE | 2021-01-25 15:46 | NUR ---
Family Contact: SW called the pts daughter, Lo ([phone]), and inquired about the chicken picker and she stated that she would message her sister and then call the SW back.
[2021-01-25 16:00] VITALS: BP 120/83
[2021-01-25] MEDS: ATORVASTATIN 10 MG TABLET PO SCH (17:02)
[2021-01-25 19:48] VITALS: BP 123/67
[2021-01-25] MEDS: LATANOPROST EYE DROP 0.005% 2.5 ML BOTTLE EACHEYE SCH (21:00)
[2021-01-26 08:00] VITALS: BP 113/54
[2021-01-26] MEDS: DIVALPROEX SODIUM 250 MG TABLET.DR PO SCH ×3 (08:10→17:04)
[2021-01-26] MEDS: risperiDONE 1 MG TABLET PO SCH ×2 (08:10→17:04)
[2021-01-26] MEDS: SERTRALINE HCL 25 MG TABLET PO SCH (08:10)
[2021-01-26] MEDS: ASPIRIN EC 81 MG TABLET.DR PO SCH (08:10)
--- NOTE | 2021-01-26 09:52 | NUR ---
Family Contact: AGUEDA called the pts daughter, Aylin ([phone]), who left a voicemail for the SW. She stated that the pt cannot be discharged at this time because she is not comfortable with the current medications that she is on and the pts daughter fears that the pt will refuse when she gets to the facility and will have to come back to the hospital. AGUEDA stated that she will speak to the MD.
--- NOTE | 2021-01-26 12:59 | NUR ---
Family Contact: AGUEDA called the pts daughter, Lo ([phone]), and inquired about whether or not she has had any reservations about the pt being discharged too early. Lo stated that he wanted the pt to remain in the hospital a bit longer to stabilize because she feels that the pt is splitting.
--- NOTE | 2021-01-26 13:01 | NUR ---
Family Contact: SW called the pts daughter, Aylin ([phone]), and left her a voicemail stating that the pt is not going to be discharged at this time and that the SW will inform her of when that time will be.
--- NOTE | 2021-01-26 13:05 | NUR ---
Family Contact: SW called the pts daughter, Aylin ([phone]), and she stated that she is content that the pt is not being discharged today but she stated that the pt is now agitated because she is not leaving today.
--- NOTE | 2021-01-26 13:07 | NUR ---
Facility Contact: [facility]EDA called [facility] ([phone]) and spoke to Kaye the [facility] and informed her that the pt is going to remain in the hospital for a few more days.
[2021-01-26 16:00] VITALS: BP 118/59
[2021-01-26] MEDS: ATORVASTATIN 10 MG TABLET PO SCH (17:04)
[2021-01-26 20:00] VITALS: BP 137/64
[2021-01-26] MEDS: LATANOPROST EYE DROP 0.005% 2.5 ML BOTTLE EACHEYE SCH (21:54)
[2021-01-27 08:00] VITALS: BP 110/52
[2021-01-27] MEDS: risperiDONE 1 MG TABLET PO SCH ×2 (09:01→16:20)
[2021-01-27] MEDS: ASPIRIN EC 81 MG TABLET.DR PO SCH (09:01)
[2021-01-27] MEDS: DIVALPROEX SODIUM 250 MG TABLET.DR PO SCH ×3 (09:18→16:20)
[2021-01-27 16:00] VITALS: BP 101/57
[2021-01-27] MEDS: ATORVASTATIN 10 MG TABLET PO SCH (17:37)
[2021-01-27 19:42] VITALS: BP 113/57
[2021-01-27 20:02] VITALS: BP 113/57
[2021-01-27] MEDS: LATANOPROST EYE DROP 0.005% 2.5 ML BOTTLE EACHEYE SCH (21:17)
--- NOTE | 2021-01-27 21:25 | NUR ---
RN NOTES PT. ASKED ATIVAN FOR SLEEPING- ATIVAN 1MG PO GIVEN ORDERED, V/S STABLE
[2021-01-27] MEDS: LORAZEPAM 1 MG TABLET PO PRN (21:28)
[2021-01-28 08:00] VITALS: BP 103/59
[2021-01-28] MEDS: risperiDONE 1 MG TABLET PO SCH ×2 (08:57→16:19)
[2021-01-28] MEDS: DIVALPROEX SODIUM 250 MG TABLET.DR PO SCH ×3 (08:57→16:19)
[2021-01-28] MEDS: ASPIRIN EC 81 MG TABLET.DR PO SCH (08:57)
--- NOTE | 2021-01-28 12:26 | NUR ---
Family Contact: SW called the pts daughter, Aylin ([phone]), and informed her that the pt is going to be discharged on Sunday.
[2021-01-28 16:00] VITALS: BP 136/86
[2021-01-28] MEDS: ATORVASTATIN 10 MG TABLET PO SCH (17:20)
[2021-01-28 20:25] VITALS: BP 131/65
[2021-01-28] MEDS: LORAZEPAM 1 MG TABLET PO PRN (21:29)
[2021-01-28] MEDS: LATANOPROST EYE DROP 0.005% 2.5 ML BOTTLE EACHEYE SCH (21:30)
[2021-01-29 08:00] VITALS: BP 153/70
[2021-01-29] MEDS: ASPIRIN EC 81 MG TABLET.DR PO SCH (08:31)
[2021-01-29] MEDS: risperiDONE 1 MG TABLET PO SCH ×2 (08:31→17:17)
[2021-01-29] MEDS: DIVALPROEX SODIUM 250 MG TABLET.DR PO SCH ×3 (08:31→17:17)
[2021-01-29 16:00] VITALS: BP 109/60
[2021-01-29] MEDS: ATORVASTATIN 10 MG TABLET PO SCH (17:17)
--- NOTE | 2021-01-29 19:50 | NUR ---
MS RN: GPS OVERFLOW PATIENT Report given to Baldomero/RN. Patient transferred to [facility] room 308B via wheelchair accompanied by YESIKA.
[2021-01-29 20:00] VITALS: BP 131/68
--- NOTE | 2021-01-29 20:19 | NUR ---
MS REEL MAN NOTES: RECEIVED PATIENT FROM GP, DX IS MAJOR DEPRESSION , CC: EPISODE OF DEPRESSION AND HEARING VOICE, A/OX3, PATIENT IS VERBALLY RESPONSIVE AND ABLE TO MAKE NEEDS KNOWN, AMBULATORY WITH SUPERVISION, WITH NO KNOWN ALLERGY, ON CARDIAC DIET, SKIN IS INTACT JUPON ASSESSMENT, NO COMPLAIN OF PAIN AND DISCOMFORT AT THIS TIME, NO SOB NOTED, ORIENT TO ROOM, WITH 1:1 SITTER, ALL NEEDS MET, KEPT CLEAN AND DRY, WILL CONTINUE TO MONITOR.
[2021-01-29] MEDS: LATANOPROST EYE DROP 0.005% 2.5 ML BOTTLE EACHEYE SCH (21:41)
[2021-01-29] MEDS: LORAZEPAM 1 MG TABLET PO PRN (21:48)
[2021-01-29] MEDS ORDERED: TEMAZEPAM 7.5 MG CAPSULE PO PRN (22:00)
[2021-01-29 22:55] VITALS: BP 131/68
--- NOTE | 2021-01-30 07:00 | NUR ---
MS GUEVARA CLOSING NOTES: PATIENT WAS PLACED IN BED COMFORTABLY, BED IN LOW POSITION, CALL LIGHTS WITHIN REACH, NO COMPLAIN OF PAIN AND DISCOMFORT AT THIS TIME, ON CLINICAL TRIAL COMPLIANT TO MEDICATION, KEPT CLEAN AND DRY, ALL NEEDS MET, WILL CONTINUE TO MONITOR. Addendum: 01/30/21 at 0756 by RAUL LR RN MS GUEVARA CLOSING NOTES: WRONG PATIENT INTENDED FOR 315
--- NOTE | 2021-01-30 07:56 | NUR ---
MS RN CLOSING NOTES: PATIENT WAS PLACE IN BED COMFORTABLY, AWAKE, A/O X2-3 VERBALLY RESPONSIVE, AMBULATORY WITH SUPERVISION, NO COMPLAIN OF PAIN AND DISCOMFORT AT THIS TIME, ALL NEEDS MET, EPT CLEAN AND DRY ENDORSE TO INCOMING SHIFT.
--- NOTE | 2021-01-30 08:02 | NUR ---
MS RN OPENING NOTES RECEIVED PATIENT, AWAKE IN BED. ALERT AND ORIENTED X 1. NO SIGNS OR SYMPTOMS OF DISTRESS NOTED. NO SOB. SITTER PRESENT AT BEDSIDE. SAFETY MEASURES IN PLACE, BED LOCKED AT LOWEST POSITION, SIDE RAILS UP X 2. WILL CONTINUE TO MONITOR PATIENT THROUGHOUT SHIFT.
[2021-01-30] MEDS: ASPIRIN EC 81 MG TABLET.DR PO SCH (09:16)
[2021-01-30] MEDS: risperiDONE 1 MG TABLET PO SCH ×2 (09:17→16:37)
[2021-01-30] MEDS: DIVALPROEX SODIUM 250 MG TABLET.DR PO SCH ×3 (09:17→16:37)
[2021-01-30] MEDS: ATORVASTATIN 10 MG TABLET PO SCH (17:57)
--- NOTE | 2021-01-30 19:03 | NUR ---
MS RN CLOSING NOTES PATIENT IS AWAKE IN BED. ALERT AND ORIENTED X 3-4. NO SIGNS OR SYMPTOMS OF DISTRESS NOTED. NO C/O PAIN AT THIS TIME. NO SOB. SAFETY MEASURES IN PLACE, BED LOCKED AT LOWEST POSITION, SIDE RAILS UP X 2. CALL LIGHT IS WITHIN REACH. WILL ENDORSE CONTINUITY OF CARE TO NEXT SHIFT.
--- NOTE | 2021-01-30 19:39 | NUR ---
SANDRA RN OPENING NOTES: RECEIVED PATIENT IN BED SLEEP BUT AROUSABLE TO STIMULI, NO COMPLAIN OF PAIN AND DISCOMFORT AT THIS TIME, WITH 1:1 SITTER, Ju[place]ino/OX2-3, AMBULATORY WITH SUPERVISION, NO BEHAVIORAL CHANGES HAS BEEN OBSERVED, PATIENT KEPT CLEAN AND DRY, WILL CONTINUE TO MONITOR.
[2021-01-30] MEDS: LORAZEPAM 1 MG TABLET PO PRN (20:16)
[2021-01-30] MEDS: LATANOPROST EYE DROP 0.005% 2.5 ML BOTTLE EACHEYE SCH (22:53)
[2021-01-31 02:24] VITALS: BP 112/57
--- NOTE | 2021-01-31 06:50 | NUR ---
SANDRA RN CLOSING NOTES: PATIENT SLEEP IN BED COMFORTABLY, AROUSABLE TO STIMULI, BED IN LOW POSITION, CALL LIGHTS WITHIN REACH, NO COMPLAIN OF PAIN AND DISCOMFORT AT THIS TIME, AMBULATORY WITH SUPERVISION,WITH 1:1 SITTER, ON 5249 TILL 02/04, ALL NEEDS MET, KEPT CLEAN AND DRY, ENDORSE TO INCOMING SHIFT.
--- NOTE | 2021-01-31 07:34 | NUR ---
MS RN OPENING NOTES RECEIVED PATIENT, ASLEEP IN BED. ALERT AND ORIENTED X 4. NO SIGNS OR SYMPTOMS OF DISTRESS NOTED. NO SOB. SITTER PRESENT AT BEDSIDE. SAFETY MEASURES IN PLACE, BED LOCKED AT LOWEST POSITION, SIDE RAILS UP X 2. WILL CONTINUE TO MONITOR PATIENT THROUGHOUT SHIFT.
--- NOTE | 2021-01-31 08:15 | NUR ---
gps ov melter assistant: notes pt for d'c planning this am. daughter to pick her up around 0930am. dr. packer notified and received order okay to discharge back to [facility], d'c hold, and prescriptions in chart as stated. pt stable for discharge. denied si/hi and denied auditory/visual hallucinations.
[2021-01-31] MEDS: ASPIRIN EC 81 MG TABLET.DR PO SCH (09:05)
[2021-01-31] MEDS: risperiDONE 1 MG TABLET PO SCH (09:05)
[2021-01-31] MEDS: DIVALPROEX SODIUM 250 MG TABLET.DR PO SCH (09:05)
--- NOTE | 2021-01-31 10:02 | NUR ---
Discharge Note: Pt will be discharged to [facility] located at [address] [place] [address]; . Pt will be discharged at 9:30am and will be picked up by her daughter, Aylin ([phone]). Upon discharge, the pt appears to be in a euthymic mood and presents with a calm affect. Pt appears to be alert and oriented x4 (time, self, place and situation). Pt denies both suicidal and homicidal ideation as well as auditory and visual hallucinations. Pt appears ambulatory with a steady gait. Pt appears to be well groomed and appropriately dressed. Pt will continue to be under the care of psychiatrist, Dr. London Valadez, located at [address] [facility] [address] [address]; and pediatric radiologist, Dr. Kendrick, located at [address] [place] [address]; . The multidisciplinary exit care form was done, printed, signed, and given to the patient.
--- NOTE | 2021-01-31 10:18 | NUR ---
MS SKULL SPLITTER NOTES PATIENT WAS DISCHARGED WITH STABLE VITAL SIGNS. ALERT AND ORIENTED X4. NO SIGNS OR SYMPTOMS OF DISTRESS NOTED. NO C/O PAIN AT THIS TIME. MORNING MEDICATIONS GIVEN PRESCRIBED. ALL BELONGINGS REVIEWED WITH PATIENT AND CHECK LIST COMPLETED AND SIGNED WITH PATIENT. DISCHARGE SUMMARY REVIEWED WITH PATIENT AND DAUGHTER INCLUDING NEW MEDICATIONS. WRIST BAND REMOVED. DAUGHTER REFUSED WHEELCHAIR TO BE ESCORTED OUT. PATIENT ACCOMPANIED OUT THE FACILITY @ 1000.
== END 2021-01-31 10:45 | DRG 885 ==
LOC: ER 17:04 → GPS 01-19 03:51 → MED 01-29 19:56 → GPSOV 01-29 20:09
PROVIDERS: ADMIT Psychiatry & Neurology Psychiatry; ATTEND Internal Medicine
DX: F25.1 Schizoaffective disorder, depressive type (principal); F41.9 Anxiety disorder, unspecified; I10 Essential (primary) hypertension; H40.9 Unspecified glaucoma; J44.9 Chronic obstructive pulmonary disease, unspecified; E78.5 Hyperlipidemia, unspecified; E66.9 Obesity, unspecified; F17.210 Nicotine dependence, cigarettes, uncomplicated; G47.00 Insomnia, unspecified; L84 Corns and callosities; Z20.822 Contact with and (suspected) exposure to COVID-19; Z79.899 Other long term (current) drug therapy; Z68.30 Body mass index [BMI] 30.0-30.9, adult; Z73.6 Limitation of activities due to disability; F32.9 Major depressive disorder, single episode, unspecified; Z71.6 Tobacco abuse counseling; F29 Unspecified psychosis not due to a substance or known physiological condition; F03.90 Unspecified dementia, unspecified severity, without behavioral disturbance, psychotic disturbance, mood disturbance, and anxiety
CPT/HCPCS: 36415; 71045-TC; 80048-TC; 80053-TC; 80061-TC; 80076-TC; 80164-TC; 82306; 82962-TC; 84443-TC; 84484-TC; 85025-TC; 87081-TC; C9803; G0480

== ENCOUNTER 2021-06-21 13:55 | Emergency (ER) | payer MEDICARE, OTHER ==
[~2021-06-21] VITALS: Ht 162.6 cm; Wt 81.6 kg
[~2021-06-21 13:55] MED LIST changes: +ATOR10TA PO; -BISA10SU11 RC; -DIPH-530 PO; -MAGN400O6 PO; -MELA3TAB41 PO; -POLY17PO4 PO; -PRAV40TA PO; -SENN-18 PO
--- NOTE | 2021-06-21 14:20 | NUR ---
DR SOSA FROM [facility] WANTS MED CLEARANCE AND SONNY THE PATIENT TP GO TO [facility] [phone]
--- NOTE | 2021-06-21 14:49 | NUR ---
[facility] OF [facility] CALLED AND SAID THAT DR PRADO IS LOOKING TO ADMIT THE PATIENT. NEED TO FAX ALL CLINICALS FIRST SO THEY CAN REVIEW
[2021-06-21 14:56] LABS: BASOPHILS # (AUTO) 0.1 K/uL (0.0-0.2); BASOPHILS % (AUTO) 0.6 % (0.0-2.0); HEMATOCRIT 45 % (33-45); HEMOGLOBIN 14.6 g/dL (11.5-14.8); LYMPHOCYTES # (AUTO) 1.9 K/uL (0.8-4.8); LYMPHOCYTES % (AUTO) 19.3 % (20.0-44.0); MEAN CORPUSCULAR HGB CONC 33 g/dl (31.0-36.0); MEAN CORPUSCULAR VOLUME 88 fL (82-100); MONOCYTES # (AUTO) 0.8 K/uL (0.1-1.30); MONOCYTES % (AUTO) 7.8 % (2.0-12.0); NEUTROPHILS % (AUTO) 70.3 % (43.0-81.0); PLATELET COUNT (AUTO) 203 K/uL (150-450); RED BLOOD CELL COUNT(AUTO) 5.12 MIL/uL (4.0-5.2)
--- NOTE | 2021-06-21 14:56 | NUR ---
COVID SWAB DONE AND SENT TO THE LAB
[2021-06-21] MEDS ORDERED: QUET200T PO (14:59)
[2021-06-21] MEDS ORDERED: ALBU18HF2 IH (14:59)
[2021-06-21] MEDS ORDERED: OLAN15TA3 PO (14:59)
[2021-06-21] MEDS ORDERED: OLAN10TA3 PO (14:59)
[2021-06-21] MEDS ORDERED: OXYB5TAB16 PO (14:59)
[2021-06-21] MEDS ORDERED: MELA5TAB PO (14:59)
[2021-06-21 15:04] LABS: BILIRUBIN,URINE Negative (NEGATIVE); COLOR,URINE YELLOW (YELLOW); LEUKOCYTE ESTERASE ,URINE Negative (NEGATIVE); NITRITE, URINE Negative (NEGATIVE); PROTEIN,URINE Negative (NEGATIVE); UGLUCOSE Negative (NEGATIVE); UROBILINOGEN,URINE 0.2 EU/dL (0.2)
[2021-06-21 15:34] LABS: ALANINE AMINOTRANSFERASE 29 U/L (12-78); ALBUMIN 3.5 g/dL (3.4-5.0); ALKALINE PHOSPHATASE 104 U/L (46-116); ASPARTATE AMINOTRANSFERASE 19 U/L (15-37); BILIRUBIN,TOTAL 0.1 mg/dL (0.2-1.0); CALCIUM, SERUM 10.1 mg/dL (8.5-10.1); CARBON DIOXIDE 25 mmol/L (21-32); CHLORIDE 108 mmol/L (98-107); CREATININE 0.8 mg/dL (0.6-1.3); GLUCOSE 111 mg/dL (74-106); POTASSIUM 4.4 mmol/L (3.5-5.1); SODIUM SERUM 142 mmol/L (136-145); TOTAL PROTEIN, SERUM 7.1 g/dL (6.4-8.2); UREA NITROGEN, BLOOD 20 mg/dL (7-18)
[2021-06-21 15:35] LABS: ACETAMINOPHEN < 10 ug/ml (10-30); ALCOHOL, BLOOD < 3 mg/dL (0-0)
--- NOTE | 2021-06-21 16:05 | NUR ---
FAXED CLINICALS OF PT TO [facility]
--- NOTE | 2021-06-21 16:25 | NUR ---
REFUSED TO WAIT AND DEMANDED TO GO,DR RICH INFORMED AND DECIDED TO DISCHARGE HER INSTEAD
[2021-06-21 16:33] VITALS: BP 142/79
== END 2021-06-21 16:35 | disposition home or self-care (01) ==
LOC: ER 13:59
DX: F31.9 Bipolar disorder, unspecified (principal); Z91.14 Patient's other noncompliance with medication regimen; I10 Essential (primary) hypertension; F17.200 Nicotine dependence, unspecified, uncomplicated; Z20.822 Contact with and (suspected) exposure to COVID-19; Z53.29 Procedure and treatment not carried out because of patient's decision for other reasons
CPT/HCPCS: 36415; 80048-TC; 80076-TC; 85025-TC; C9803; G0480

== ENCOUNTER 2021-06-21 19:37 | Emergency (ER) | payer MEDICARE, OTHER ==
[~2021-06-21] VITALS: Ht 162.6 cm; Wt 81.6 kg
[~2021-06-21 19:37] MED LIST changes: +ALBU18HF2 IH; +MELA5TAB PO; +OLAN10TA3 PO; +OLAN15TA3 PO; +OXYB5TAB16 PO; +QUET200T PO
--- NOTE | 2021-06-21 20:54 | NUR ---
[facility] [phone]
--- NOTE | 2021-06-21 22:00 | NUR ---
DROPPED OF BY DAUGHTER. TO ER BED 11. AAOX4. NOT IN RESP DISTRESS. AMBULATORY. BROUGHT IN FOR FEELING DEPRESSED AND SEEKING VOLUNTARY ADMISSION TO [facility] TO SEEK TREATMENT WITH DR. XIE. DENIES SI NOR HI. NO HALLUCIONATION. AWAITING MD FOR EVAL.
[2021-06-21 22:28] LABS: BASOPHILS # (AUTO) 0.2 K/uL (0.0-0.2); BASOPHILS % (AUTO) 1.9 % (0.0-2.0); EOSINOPHILS % (AUTO) 0.8 % (0.0-6.0); HEMATOCRIT 46 % (33-45); HEMOGLOBIN 15.1 g/dL (11.5-14.8); LYMPHOCYTES # (AUTO) 2.1 K/uL (0.8-4.8); LYMPHOCYTES % (AUTO) 18.2 % (20.0-44.0); MEAN CORPUSCULAR HGB CONC 33 g/dl (31.0-36.0); MEAN CORPUSCULAR VOLUME 87 fL (82-100); MONOCYTES # (AUTO) 0.7 K/uL (0.1-1.30); MONOCYTES % (AUTO) 6.1 % (2.0-12.0); NEUTROPHILS # (AUTO) 8.5 K/uL (1.8-8.9); PLATELET COUNT (AUTO) 206 K/uL (150-450); RED BLOOD CELL COUNT(AUTO) 5.28 MIL/uL (4.0-5.2); WHITE BLOOD COUNT (AUTO) 11.6 K/uL (4.3-11.0)
[2021-06-21 22:36] LABS: CALCIUM, SERUM 10.4 mg/dL (8.5-10.1); CARBON DIOXIDE 30 mmol/L (21-32); CHLORIDE 107 mmol/L (98-107); CREATININE 0.8 mg/dL (0.6-1.3); GLUCOSE 107 mg/dL (74-106); POTASSIUM 3.9 mmol/L (3.5-5.1); SODIUM SERUM 143 mmol/L (136-145); UREA NITROGEN, BLOOD 19 mg/dL (7-18)
--- NOTE | 2021-06-21 22:39 | NUR ---
COVID SWAB SENT TO LAB
[2021-06-21 22:47] LABS: ACETAMINOPHEN < 2 ug/ml (10-30)
[2021-06-21 22:49] LABS: ALANINE AMINOTRANSFERASE 33 U/L (12-78); ALBUMIN 3.8 g/dL (3.4-5.0); ALKALINE PHOSPHATASE 103 U/L (46-116); ASPARTATE AMINOTRANSFERASE 17 U/L (15-37); BILIRUBIN,DIRECT 0.1 mg/dL (0.0-0.2); BILIRUBIN,TOTAL 0.2 mg/dL (0.2-1.0); TOTAL PROTEIN, SERUM 7.4 g/dL (6.4-8.2)
[2021-06-21 22:52] LABS: ALCOHOL, BLOOD < 3 mg/dL (0-0)
--- NOTE | 2021-06-22 | NUR ---
pt attached to monitor and pox. Watching tv quietly
[2021-06-22 00:20] LABS: BILIRUBIN,URINE Negative (NEGATIVE); COLOR,URINE YELLOW (YELLOW); LEUKOCYTE ESTERASE ,URINE Negative (NEGATIVE); NITRITE, URINE Negative (NEGATIVE); PH,URINE 5.5 (5.0-8.0); PROTEIN,URINE 30 mg/dl (NEGATIVE); UGLUCOSE Negative (NEGATIVE); UROBILINOGEN,URINE 0.2 EU/dL (0.2)
--- NOTE | 2021-06-22 02:15 | NUR ---
Patient is resting comfortably in bed with eyes closed. Easily aroused. VSS
--- NOTE | 2021-06-22 03:24 | NUR ---
PT ACCEPTED AT [facility] UNDER THE CARE OF DR. XIE. PT GOPING TO UNIT 1. PLEASE SEND PT AFTER 0800 PER AIRPORT RAMP AGENT REQUEST
--- NOTE | 2021-06-22 04:18 | NUR ---
[facility] TECHNIC[facility] @ 0800 REF# [id number] C/O DENISA
--- NOTE | 2021-06-22 07:46 | NUR ---
REPORT GIVEN TO TOR[facility]
[2021-06-22 08:07] VITALS: BP 131/84
--- NOTE | 2021-06-22 08:07 | NUR ---
THE PATIENT IS TRANSFERED TO [facility] IN STABLE CONDITION AND VIA ARRANGED TRANSPO.
== END 2021-06-22 08:08 ==
LOC: ER 19:46
DX: F25.0 Schizoaffective disorder, bipolar type (principal); R45.851 Suicidal ideations; I10 Essential (primary) hypertension; F17.200 Nicotine dependence, unspecified, uncomplicated; Z79.82 Long term (current) use of aspirin; Z79.899 Other long term (current) drug therapy; Z20.822 Contact with and (suspected) exposure to COVID-19
CPT/HCPCS: 36415; 80048-TC; 80076-TC; 85025-TC; C9803; G0480

== ENCOUNTER 2021-09-04 17:33 | Emergency (ER) | payer MEDICARE, OTHER ==
[~2021-09-04] VITALS: Ht 162.6 cm; Wt 77.1 kg
--- NOTE | 2021-09-04 18:01 | NUR ---
THE PATIENT IS PRESENTED FOR THIRST, DRY MOUTH AND FREQUENT URINATION X 2 WEEKS. ALERT AND ORIENTED X4. DENIES PAIN. IN ROOM AIR AND DENIES SOB. RESPIRATION REGULAR AND UNLABORED. WILL CONTINUE TO MONITOR THE PATIENT.
--- NOTE | 2021-09-04 19:13 | NUR ---
[address] [place] [id number] TEL [phone] PER PATIENT`S DAUGHTER ELIDIA THE PATIENT LIVES IN [place] AND THERE ARE STAFF MEMBER WHO WILL BE WAITING FOR THE PATIENT.
--- NOTE | 2021-09-04 19:18 | NUR ---
PER PATIENT STATES THAT THERE ARE STAFF IN THE [place] WHO WILL OPEN THE DOOR FOR HER AND HELP HER WITH CARE.
--- NOTE | 2021-09-04 19:18 | NUR ---
[facility] [phone] WILL COLLECT PT IN 45 MINS PER ELIDIA
[2021-09-04 20:40] VITALS: BP 142/79
--- NOTE | 2021-09-04 20:40 | NUR ---
Patient discharged to home in stable condition. Written and verbal after care instructions given. Patient verbalizes understanding of instruction.IV removed. Catheter intact and site benign. Pressure and 4x4 applied to site. No bleeding noted.
== END 2021-09-04 20:41 | disposition home or self-care (01) ==
LOC: ER 17:37
DX: R68.2 Dry mouth, unspecified (principal); I10 Essential (primary) hypertension; F25.0 Schizoaffective disorder, bipolar type; Z79.82 Long term (current) use of aspirin; Z79.899 Other long term (current) drug therapy
CPT/HCPCS: 82962-TC

== ENCOUNTER 2021-09-11 14:41 | Inpatient (IN) | payer MEDICARE, OTHER ==
[~2021-09-11] VITALS: Ht 162.6 cm; Wt 86.2 kg
[2021-09-11] MEDS ORDERED: OLANZAPINE 10 MG VIAL IM ONE ×2 (15:30→16:13)
[2021-09-11 16:16] LABS: BASOPHILS % (AUTO) 0.4 % (0.0-2.0); EOSINOPHILS % (AUTO) 2.7 % (0.0-6.0); HEMATOCRIT 40 % (33-45); HEMOGLOBIN 13.2 g/dL (11.5-14.8); LYMPHOCYTES # (AUTO) 2.1 K/uL (0.8-4.8); LYMPHOCYTES % (AUTO) 24.4 % (20.0-44.0); MEAN CORPUSCULAR HGB CONC 33 g/dl (31.0-36.0); MEAN CORPUSCULAR VOLUME 87 fL (82-100); MONOCYTES # (AUTO) 0.6 K/uL (0.1-1.30); NEUTROPHILS # (AUTO) 5.6 K/uL (1.8-8.9); NEUTROPHILS % (AUTO) 65.5 % (43.0-81.0); PLATELET COUNT (AUTO) 240 K/uL (150-450); RED BLOOD CELL COUNT(AUTO) 4.58 MIL/uL (4.0-5.2); WHITE BLOOD COUNT (AUTO) 8.6 K/uL (4.3-11.0)
[2021-09-11 16:26] LABS: BILIRUBIN,URINE NEGATIVE (NEGATIVE); COLOR,URINE YELLOW (YELLOW); LEUKOCYTE ESTERASE ,URINE NEGATIVE (NEGATIVE); NITRITE, URINE NEGATIVE (NEGATIVE); PH,URINE 5.5 (5.0-8.0); PROTEIN,URINE NEGATIVE (NEGATIVE); UGLUCOSE NEGATIVE (NEGATIVE); UROBILINOGEN,URINE 0.2 EU/dL (0.2)
[2021-09-11 16:35] LABS: ALBUMIN 3.3 g/dL (3.4-5.0); BILIRUBIN,DIRECT 0.1 mg/dL (0.0-0.2); BILIRUBIN,TOTAL 0.2 mg/dL (0.2-1.0); CALCIUM, SERUM 10.1 mg/dL (8.5-10.1); CREATININE 0.8 mg/dL (0.6-1.3); POTASSIUM 3.6 mmol/L (3.5-5.1); TOTAL PROTEIN, SERUM 7.1 g/dL (6.4-8.2)
[2021-09-11] MEDS ORDERED: LORAZEPAM 1 MG TABLET PO ONE (18:30)
[2021-09-11] MEDS ORDERED: LORAZEPAM 1 MG TABLET ONE (19:03)
[2021-09-12] MEDS ORDERED: BLOOD SUGAR DIAGNOSTIC 1 EACH STRIP IN ONE (00:30)
[2021-09-12] MEDS ORDERED: LORAZEPAM 0.5 MG TABLET PO PRN (00:30)
[2021-09-12] MEDS ORDERED: MAG HYDROX/AL HYDROX/SIMETH 30 ML UDC PO PRN (00:30)
[2021-09-12] MEDS ORDERED: MAGNESIUM HYDROXIDE 30 ML UDC PO PRN (00:30)
[2021-09-12] MEDS ORDERED: ACETAMINOPHEN 325 MG TABLET PO PRN (00:30)
[2021-09-12 01:01] VITALS: BP 122/74
[2021-09-12] MEDS ORDERED: ALBUTEROL FS 2.5 MG/3 ML VIAL.NEB NEB PRN (02:30)
[2021-09-12 08:00] VITALS: BP 149/70
[2021-09-12] MEDS: OXYBUTYNIN CHLORIDE 5 MG TABLET PO SCH ×3 (08:37→17:19)
[2021-09-12] MEDS: ASPIRIN EC 81 MG TABLET.DR PO SCH (08:37)
[2021-09-12] MEDS: CYANOCOBALAMIN 500 MCG TABLET PO SCH (08:37)
[2021-09-12] MEDS: DOCUSATE SODIUM 100 MG CAPSULE PO SCH (08:37)
[2021-09-12] MEDS ORDERED: OLANZAPINE 10 MG TABLET PO SCH ×2 (09:00)
[2021-09-12 16:00] VITALS: BP 134/89
[2021-09-12] MEDS: ATORVASTATIN 10 MG TABLET PO SCH (17:19)
[2021-09-12 19:27] VITALS: BP 150/93
[2021-09-12] MEDS: LATANOPROST EYE DROP 0.005% 2.5 ML BOTTLE EACHEYE SCH (21:52)
[2021-09-12] MEDS ORDERED: Medication Not On Formulary EA (Melatonin 5 MG) PO SCH (22:00)
[2021-09-12] MEDS: risperiDONE 1 MG TABLET PO SCH (22:45)
[2021-09-12] MEDS: LITHIUM CARBONATE 150 MG CAPSULE PO SCH (23:04)
[2021-09-13 08:00] VITALS: BP 135/69
[2021-09-13] MEDS: OXYBUTYNIN CHLORIDE 5 MG TABLET PO SCH ×3 (09:04→17:00)
[2021-09-13] MEDS: DOCUSATE SODIUM 100 MG CAPSULE PO SCH (09:04)
[2021-09-13] MEDS: LITHIUM CARBONATE 150 MG CAPSULE PO SCH ×3 (09:05→17:00)
[2021-09-13] MEDS: CYANOCOBALAMIN 500 MCG TABLET PO SCH (09:10)
[2021-09-13] MEDS: ASPIRIN EC 81 MG TABLET.DR PO SCH (09:11)
[2021-09-13] MEDS: risperiDONE 1 MG TABLET PO SCH ×2 (10:35→21:48)
[2021-09-13 15:47] LABS: BASOPHILS # (AUTO) 0.1 K/uL (0.0-0.2); BASOPHILS % (AUTO) 0.9 % (0.0-2.0); EOSINOPHILS % (AUTO) 0.9 % (0.0-6.0); HEMATOCRIT 44 % (33-45); HEMOGLOBIN 14.3 g/dL (11.5-14.8); LYMPHOCYTES # (AUTO) 2.1 K/uL (0.8-4.8); LYMPHOCYTES % (AUTO) 22.9 % (20.0-44.0); MEAN CORPUSCULAR HGB CONC 33 g/dl (31.0-36.0); MEAN CORPUSCULAR VOLUME 87 fL (82-100); MONOCYTES # (AUTO) 0.3 K/uL (0.1-1.30); MONOCYTES % (AUTO) 3.6 % (2.0-12.0); NEUTROPHILS # (AUTO) 6.5 K/uL (1.8-8.9); NEUTROPHILS % (AUTO) 71.7 % (43.0-81.0); PLATELET COUNT (AUTO) 260 K/uL (150-450); WHITE BLOOD COUNT (AUTO) 9.1 K/uL (4.3-11.0)
[2021-09-13 16:00] VITALS: BP 104/56
[2021-09-13 16:15] LABS: ALBUMIN 3.6 g/dL (3.4-5.0); BILIRUBIN,TOTAL 0.3 mg/dL (0.2-1.0); CALCIUM, SERUM 10.6 mg/dL (8.5-10.1); CREATININE 0.9 mg/dL (0.6-1.3); POTASSIUM 4.1 mmol/L (3.5-5.1); TOTAL PROTEIN, SERUM 7.6 g/dL (6.4-8.2)
[2021-09-13 16:41] LABS: CHOLESTEROL 169 mg/dL (<200); HDL CHOLESTEROL 51 mg/dL (40-60); LDL 99 mg/dL (0-99); TRIGLYCERIDES 108 mg/dL (30-150)
[2021-09-13] MEDS: ATORVASTATIN 10 MG TABLET PO SCH ×2 (18:00→18:20)
[2021-09-13 20:05] VITALS: BP 144/92
[2021-09-13] MEDS: LATANOPROST EYE DROP 0.005% 2.5 ML BOTTLE EACHEYE SCH (21:14)
[2021-09-14 08:04] VITALS: BP 141/81
[2021-09-14] MEDS: OXYBUTYNIN CHLORIDE 5 MG TABLET PO SCH ×3 (08:30→17:22)
[2021-09-14] MEDS: LITHIUM CARBONATE 150 MG CAPSULE PO SCH ×3 (08:31→17:22)
[2021-09-14] MEDS: CYANOCOBALAMIN 500 MCG TABLET PO SCH (08:31)
[2021-09-14] MEDS: ASPIRIN EC 81 MG TABLET.DR PO SCH (08:32)
[2021-09-14] MEDS: DOCUSATE SODIUM 100 MG CAPSULE PO SCH (08:32)
[2021-09-14] MEDS: risperiDONE 1 MG TABLET PO SCH ×2 (09:47→22:18)
[2021-09-14] MEDS: ATORVASTATIN 10 MG TABLET PO SCH (17:22)
[2021-09-14 21:48] VITALS: BP 150/75
[2021-09-14] MEDS: LATANOPROST EYE DROP 0.005% 2.5 ML BOTTLE EACHEYE SCH (22:18)
[2021-09-15] MEDS: LITHIUM CARBONATE 150 MG CAPSULE PO SCH ×3 (08:08→17:15)
[2021-09-15] MEDS: DOCUSATE SODIUM 100 MG CAPSULE PO SCH (08:08)
[2021-09-15] MEDS: ASPIRIN EC 81 MG TABLET.DR PO SCH (08:09)
[2021-09-15] MEDS: OXYBUTYNIN CHLORIDE 5 MG TABLET PO SCH ×3 (08:09→17:15)
[2021-09-15] MEDS: CYANOCOBALAMIN 500 MCG TABLET PO SCH (08:09)
[2021-09-15] MEDS: risperiDONE 1 MG TABLET PO SCH ×3 (09:41→21:38)
[2021-09-15 15:53] VITALS: BP 142/77
[2021-09-15] MEDS: ATORVASTATIN 10 MG TABLET PO SCH (17:15)
[2021-09-15 20:00] VITALS: BP 135/75
[2021-09-15] MEDS: LATANOPROST EYE DROP 0.005% 2.5 ML BOTTLE EACHEYE SCH (21:32)
[2021-09-15] MEDS: QUETIAPINE FUMARATE 25 MG TABLET PO SCH (22:45)
[2021-09-16 08:00] VITALS: BP 154/87
[2021-09-16] MEDS: ASPIRIN EC 81 MG TABLET.DR PO SCH (08:22)
[2021-09-16] MEDS: CYANOCOBALAMIN 500 MCG TABLET PO SCH (08:22)
[2021-09-16] MEDS: OXYBUTYNIN CHLORIDE 5 MG TABLET PO SCH ×4 (08:22→16:15)
[2021-09-16] MEDS: DOCUSATE SODIUM 100 MG CAPSULE PO SCH (08:22)
[2021-09-16] MEDS: LITHIUM CARBONATE 150 MG CAPSULE PO SCH ×3 (08:22→16:15)
[2021-09-16 16:00] VITALS: BP 138/85
[2021-09-16] MEDS: ATORVASTATIN 10 MG TABLET PO SCH (17:23)
[2021-09-16 20:00] VITALS: BP 126/86
[2021-09-16] MEDS: QUETIAPINE FUMARATE 25 MG TABLET PO SCH (21:24)
[2021-09-16] MEDS: LATANOPROST EYE DROP 0.005% 2.5 ML BOTTLE EACHEYE SCH (21:25)
[2021-09-16] MEDS: TEMAZEPAM 7.5 MG CAPSULE PO PRN (21:41)
[2021-09-17 08:00] VITALS: BP 100/60
[2021-09-17] MEDS: LITHIUM CARBONATE 150 MG CAPSULE PO SCH ×3 (08:29→16:18)
[2021-09-17] MEDS: OXYBUTYNIN CHLORIDE 5 MG TABLET PO SCH ×4 (08:29→16:18)
[2021-09-17] MEDS: ASPIRIN EC 81 MG TABLET.DR PO SCH (08:29)
[2021-09-17] MEDS: CYANOCOBALAMIN 500 MCG TABLET PO SCH (08:29)
[2021-09-17] MEDS: DOCUSATE SODIUM 100 MG CAPSULE PO SCH (08:34)
[2021-09-17 16:00] VITALS: BP 133/73
[2021-09-17] MEDS: ATORVASTATIN 10 MG TABLET PO SCH (17:20)
[2021-09-17 20:00] VITALS: BP 142/71
[2021-09-17] MEDS: LATANOPROST EYE DROP 0.005% 2.5 ML BOTTLE EACHEYE SCH (21:17)
[2021-09-17] MEDS: QUETIAPINE FUMARATE 25 MG TABLET PO SCH (21:18)
[2021-09-17] MEDS: TEMAZEPAM 7.5 MG CAPSULE PO PRN (21:24)
[2021-09-18] MEDS: LITHIUM CARBONATE 150 MG CAPSULE PO SCH ×3 (09:21→17:25)
[2021-09-18] MEDS: OXYBUTYNIN CHLORIDE 5 MG TABLET PO SCH ×3 (09:21→17:25)
[2021-09-18] MEDS: CYANOCOBALAMIN 500 MCG TABLET PO SCH (09:21)
[2021-09-18] MEDS: ASPIRIN EC 81 MG TABLET.DR PO SCH (09:21)
[2021-09-18] MEDS: DOCUSATE SODIUM 100 MG CAPSULE PO SCH (09:21)
[2021-09-18] MEDS: ATORVASTATIN 10 MG TABLET PO SCH (18:45)
[2021-09-18] MEDS: LATANOPROST EYE DROP 0.005% 2.5 ML BOTTLE EACHEYE SCH (22:01)
[2021-09-18] MEDS: TEMAZEPAM 7.5 MG CAPSULE PO PRN (22:02)
[2021-09-18] MEDS: QUETIAPINE FUMARATE 25 MG TABLET PO SCH (22:02)
[2021-09-19 08:00] VITALS: BP 111/64
[2021-09-19] MEDS: DOCUSATE SODIUM 100 MG CAPSULE PO SCH (09:00)
[2021-09-19] MEDS: OXYBUTYNIN CHLORIDE 5 MG TABLET PO SCH ×3 (09:13→17:58)
[2021-09-19] MEDS: LITHIUM CARBONATE 150 MG CAPSULE PO SCH ×3 (09:13→17:58)
[2021-09-19] MEDS: ASPIRIN EC 81 MG TABLET.DR PO SCH (09:13)
[2021-09-19] MEDS: CYANOCOBALAMIN 500 MCG TABLET PO SCH (09:13)
[2021-09-19 17:20] VITALS: BP 131/72
[2021-09-19] MEDS: ATORVASTATIN 10 MG TABLET PO SCH (17:58)
[2021-09-19 19:47] VITALS: BP 130/65
[2021-09-19] MEDS: QUETIAPINE FUMARATE 25 MG TABLET PO SCH (21:08)
[2021-09-19] MEDS: TEMAZEPAM 7.5 MG CAPSULE PO PRN (21:15)
[2021-09-19] MEDS: LATANOPROST EYE DROP 0.005% 2.5 ML BOTTLE EACHEYE SCH (21:17)
[2021-09-20 08:00] VITALS: BP 132/76
[2021-09-20] MEDS: DOCUSATE SODIUM 100 MG CAPSULE PO SCH (09:00)
[2021-09-20] MEDS: ASPIRIN EC 81 MG TABLET.DR PO SCH (09:02)
[2021-09-20] MEDS: OXYBUTYNIN CHLORIDE 5 MG TABLET PO SCH ×3 (09:02→16:11)
[2021-09-20] MEDS: CYANOCOBALAMIN 500 MCG TABLET PO SCH (09:03)
[2021-09-20] MEDS: LITHIUM CARBONATE 150 MG CAPSULE PO SCH ×3 (09:03→16:11)
[2021-09-20 16:00] VITALS: BP 120/70
[2021-09-20] MEDS: ATORVASTATIN 10 MG TABLET PO SCH (17:03)
[2021-09-20 19:41] VITALS: BP 155/79
[2021-09-20 20:00] VITALS: BP 155/79
[2021-09-20] MEDS: LATANOPROST EYE DROP 0.005% 2.5 ML BOTTLE EACHEYE SCH (21:17)
[2021-09-20] MEDS: QUETIAPINE FUMARATE 25 MG TABLET PO SCH (21:20)
[2021-09-20] MEDS: TEMAZEPAM 7.5 MG CAPSULE PO PRN (21:50)
[2021-09-21 08:00] VITALS: BP 118/61
[2021-09-21] MEDS: OXYBUTYNIN CHLORIDE 5 MG TABLET PO SCH ×3 (08:25→17:36)
[2021-09-21] MEDS: ASPIRIN EC 81 MG TABLET.DR PO SCH (08:25)
[2021-09-21] MEDS: DOCUSATE SODIUM 100 MG CAPSULE PO SCH (08:25)
[2021-09-21] MEDS: LITHIUM CARBONATE 150 MG CAPSULE PO SCH ×4 (08:25→17:00)
[2021-09-21] MEDS: CYANOCOBALAMIN 500 MCG TABLET PO SCH (08:25)
[2021-09-21 16:00] VITALS: BP 139/70
[2021-09-21] MEDS: ATORVASTATIN 10 MG TABLET PO SCH (17:36)
[2021-09-21 20:00] VITALS: BP 122/57
[2021-09-21] MEDS: TEMAZEPAM 7.5 MG CAPSULE PO PRN (21:14)
[2021-09-21] MEDS: LATANOPROST EYE DROP 0.005% 2.5 ML BOTTLE EACHEYE SCH (21:14)
[2021-09-21] MEDS: QUETIAPINE FUMARATE 25 MG TABLET PO SCH (21:14)
[2021-09-22 08:00] VITALS: BP 128/75
[2021-09-22] MEDS: DOCUSATE SODIUM 100 MG CAPSULE PO SCH (08:35)
[2021-09-22] MEDS: CYANOCOBALAMIN 500 MCG TABLET PO SCH (08:35)
[2021-09-22] MEDS: ASPIRIN EC 81 MG TABLET.DR PO SCH (08:36)
[2021-09-22] MEDS: OXYBUTYNIN CHLORIDE 5 MG TABLET PO SCH ×3 (08:36→16:28)
[2021-09-22] MEDS: LITHIUM CARBONATE 150 MG CAPSULE PO SCH ×2 (08:36→08:48)
[2021-09-22] MEDS: DIVALPROEX SODIUM 250 MG TABLET.DR PO SCH ×2 (13:45→16:28)
[2021-09-22 16:14] VITALS: BP 129/76
[2021-09-22] MEDS: ATORVASTATIN 10 MG TABLET PO SCH (17:24)
[2021-09-22 20:00] VITALS: BP 131/76
[2021-09-22] MEDS: LATANOPROST EYE DROP 0.005% 2.5 ML BOTTLE EACHEYE SCH (21:06)
[2021-09-22] MEDS: QUETIAPINE FUMARATE 25 MG TABLET PO SCH (21:06)
[2021-09-22] MEDS: TEMAZEPAM 7.5 MG CAPSULE PO PRN (21:35)
[2021-09-23 08:00] VITALS: BP 141/81
[2021-09-23] MEDS: DOCUSATE SODIUM 100 MG CAPSULE PO SCH (08:12)
[2021-09-23] MEDS: DIVALPROEX SODIUM 250 MG TABLET.DR PO SCH ×3 (08:12→16:21)
[2021-09-23] MEDS: CYANOCOBALAMIN 500 MCG TABLET PO SCH (08:13)
[2021-09-23] MEDS: ASPIRIN EC 81 MG TABLET.DR PO SCH (08:13)
[2021-09-23] MEDS: OXYBUTYNIN CHLORIDE 5 MG TABLET PO SCH ×3 (08:13→16:21)
[2021-09-23 16:00] VITALS: BP 137/70
[2021-09-23] MEDS: ATORVASTATIN 10 MG TABLET PO SCH (17:16)
[2021-09-23 20:00] VITALS: BP 112/66
[2021-09-23] MEDS: QUETIAPINE FUMARATE 25 MG TABLET PO SCH (21:07)
[2021-09-23] MEDS: LATANOPROST EYE DROP 0.005% 2.5 ML BOTTLE EACHEYE SCH (21:08)
[2021-09-23] MEDS: TEMAZEPAM 7.5 MG CAPSULE PO PRN (21:20)
[2021-09-24 08:00] VITALS: BP 135/80
[2021-09-24] MEDS: OXYBUTYNIN CHLORIDE 5 MG TABLET PO SCH ×3 (08:05→17:48)
[2021-09-24] MEDS: DOCUSATE SODIUM 100 MG CAPSULE PO SCH (08:05)
[2021-09-24] MEDS: DIVALPROEX SODIUM 250 MG TABLET.DR PO SCH ×3 (08:05→17:48)
[2021-09-24] MEDS: CYANOCOBALAMIN 500 MCG TABLET PO SCH (08:05)
[2021-09-24] MEDS: ASPIRIN EC 81 MG TABLET.DR PO SCH (08:06)
[2021-09-24 16:00] VITALS: BP 126/71
[2021-09-24] MEDS: ATORVASTATIN 10 MG TABLET PO SCH (17:48)
[2021-09-24 19:58] VITALS: BP 120/70
[2021-09-24 20:02] VITALS: BP 120/70
[2021-09-24] MEDS: QUETIAPINE FUMARATE 25 MG TABLET PO SCH (21:24)
[2021-09-24] MEDS: LATANOPROST EYE DROP 0.005% 2.5 ML BOTTLE EACHEYE SCH (21:24)
[2021-09-24] MEDS: TEMAZEPAM 7.5 MG CAPSULE PO PRN (21:54)
[2021-09-25] MEDS: ASPIRIN EC 81 MG TABLET.DR PO SCH (07:57)
[2021-09-25] MEDS: DOCUSATE SODIUM 100 MG CAPSULE PO SCH (07:58)
[2021-09-25] MEDS: OXYBUTYNIN CHLORIDE 5 MG TABLET PO SCH ×3 (07:58→17:44)
[2021-09-25] MEDS: DIVALPROEX SODIUM 250 MG TABLET.DR PO SCH ×3 (07:58→17:44)
[2021-09-25] MEDS: CYANOCOBALAMIN 500 MCG TABLET PO SCH (07:58)
[2021-09-25 08:00] VITALS: BP 117/65
[2021-09-25 16:00] VITALS: BP 132/81
[2021-09-25] MEDS: ATORVASTATIN 10 MG TABLET PO SCH (17:45)
[2021-09-25 20:40] VITALS: BP 108/66
[2021-09-25] MEDS: QUETIAPINE FUMARATE 25 MG TABLET PO SCH (21:41)
[2021-09-25] MEDS: LATANOPROST EYE DROP 0.005% 2.5 ML BOTTLE EACHEYE SCH (21:41)
[2021-09-25] MEDS: TEMAZEPAM 7.5 MG CAPSULE PO PRN (22:22)
[2021-09-26 08:00] VITALS: BP 128/85
[2021-09-26] MEDS: DOCUSATE SODIUM 100 MG CAPSULE PO SCH ×2 (09:00→09:24)
[2021-09-26] MEDS: ASPIRIN EC 81 MG TABLET.DR PO SCH (09:24)
[2021-09-26] MEDS: OXYBUTYNIN CHLORIDE 5 MG TABLET PO SCH (09:24)
[2021-09-26] MEDS: DIVALPROEX SODIUM 250 MG TABLET.DR PO SCH (09:24)
[2021-09-26] MEDS: CYANOCOBALAMIN 500 MCG TABLET PO SCH (09:24)
== END 2021-09-26 10:40 | DRG 885 ==
LOC: ER 14:42 → GPS 22:03
PROVIDERS: ADMIT Psychiatry & Neurology Psychiatry; ATTEND Nurse Practitioner Acute Care
DX: F25.0 Schizoaffective disorder, bipolar type (principal); F29 Unspecified psychosis not due to a substance or known physiological condition; I10 Essential (primary) hypertension; E66.9 Obesity, unspecified; E78.5 Hyperlipidemia, unspecified; Z73.6 Limitation of activities due to disability; Z20.822 Contact with and (suspected) exposure to COVID-19; R53.1 Weakness; Z68.32 Body mass index [BMI] 32.0-32.9, adult; Z87.891 Personal history of nicotine dependence
CPT/HCPCS: 36415; 80048-TC; 80053-TC; 80061-TC; 80076-TC; 80164-TC; 85025-TC; 87081-TC; C9803; G0480; J3490